=== PATIENT | female | born 1955 | race African-American/Black ===

== ENCOUNTER 2016-08-08 17:31 | Emergency (ER) | payer OTHER ==
[~2016-08-08 17:31] MED LIST: CLON0.3T PO; DIVA500T2 PO; HYDR-2762 PO; Hydrocodone/Acetaminophen PO; LISI10TA PO; NAPR500T PO; OMEP20TA63 PO; VARE1TAB5 PO
--- NOTE | 2016-08-08 17:52 | PHYS DOC ---
Past Medical History Past Medical History: Arthritis, Hypertension, Seizure, Other Additional Past Medical Histor: VERTIGO, CHRONIC BACK PAIN Past Surgical History: Cholecystectomy, Hysterectomy, Other Additional Past Surgical Histo: CYSTECTOMY, NASAL Alcohol Use: None Drug Use: None Adult General Chief Complaint Chief Complaint: SEIZURE HPI HPI Patient is a 61 year old female brought to the ED by EMS from home with the complaint of seizure. When I saw her, the patient is alert and oriented but has no memory of the seizure. Patient states she has had a seizure disorder for about 20 years. Her last seizure was 3 or 4 years ago. She takes Depakote 500 mg , two twice a day. She is usually well-controlled. She did take her Depakote this morning. She has been feeling fine until today. Shortly before her seizure , she did have one episode of vomiting. Now, she feels weak all over and has a headache. Seizure was witnessed by the patient's niece, who had just stopped by to check on the patient. The niece called 911. The patient lives alone. The patient is on disability because of seizure disorder. PCP Dr. Ahsan Calzada Review of Systems Review of Systems Constitutional: Denies fever or chills , she does feel weak all over Eyes: Denies change in visual acuity, redness, or eye pain [] HENT: Denies nasal congestion or sore throat [] Respiratory: Denies cough or shortness of breath [] Cardiovascular: Denies chest pain GI: One episode of vomiting prior to seizure, no vomiting before then or since : Denies dysuria or hematuria [] Musculoskeletal: Denies back pain or joint pain [] Integument: Denies rash or skin lesions [] Neurologic: Currently has a headache, denies focal weakness Current Medications Current Medications Current Medications Medications (Trade) Dose Ordered Sig/Onel Start Time Stop Time Status Last Admin Dose Admin Acetaminophen (Tylenol) 650 mg 1X ONCE 08/08/16 19:00 08/08/16 19:01 UNV Allergies Allergies Allergies Coded Allergies Type Severity Reaction Last Updated Verified Sulfa (Sulfonamide Antibiotics) Allergy Intermediate 02/18/15 No Physical Exam Physical Exam Constitutional: Well developed, well nourished, no acute distress, non-toxic appearance. Alert, eyes are open, she appears a bit weak and slow but she answers questions appropriately. HENT: Normocephalic, atraumatic, bilateral external ears normal, oropharynx moist, no oral exudates, nose normal. [] Eyes: PERRLA, EOMI, conjunctiva normal, no discharge. [] Neck: Normal range of motion, no tenderness, supple, no stridor. [] Cardiovascular:Heart rate regular rhythm, no murmur [] Lungs & Thorax: Bilateral breath sounds clear to auscultation [] Abdomen: Bowel sounds normal, soft, no tenderness, no masses, no pulsatile masses. [] Skin: Warm, dry, no erythema, no rash. [] Extremities: No tenderness, no cyanosis, no clubbing, ROM intact, no edema. [] Neurologic: Alert and oriented X 3, normal motor function, normal sensory function, no focal deficits noted. Current Patient Data Vital Signs Vital Signs Date Time Temp Pulse Resp B/P Pulse Ox O2 Delivery O2 Flow Rate FiO2 08/08/16 18:15 98.6 92 12 151/78 96 Room Air 98.6 Lab Values Laboratory Tests Test 08/08/16 17:47 White Blood Count 11.3x10^3/uL (4.0-11.0) H Red Blood Count 4.95x10^6/uL (3.50-5.40) Hemoglobin 13.0g/dL (12.0-15.5) Hematocrit 40.2% (36.0-47.0) Mean Corpuscular Volume 81fL (79-100) Mean Corpuscular Hemoglobin 26pg (25-35) Mean Corpuscular Hemoglobin Concent 32g/dL (31-37) Red Cell Distribution Width 15.3% (11.5-14.5) H Platelet Count 260x10^3/uL (140-400) Neutrophils (%) (Auto) 68% (31-73) Lymphocytes (%) (Auto) 26% (24-48) Monocytes (%) (Auto) 5% (0-9) Eosinophils (%) (Auto) 1% (0-3) Basophils (%) (Auto) 1% (0-3) Neutrophils # (Auto) 7.6x10^3uL (1.8-7.7) Lymphocytes # (Auto) 2.9x10^3/uL (1.0-4.8) Monocytes # (Auto) 0.5x10^3/uL (0.0-1.1) Eosinophils # (Auto) 0.1x10^3/uL (0.0-0.7) Basophils # (Auto) 0.1x10^3/uL (0.0-0.2) Sodium Level 141mmol/L (136-145) Potassium Level 3.8mmol/L (3.5-5.1) Chloride Level 103mmol/L (98-107) Carbon Dioxide Level 27mmol/L (21-32) Anion Gap 11 (6-14) Blood Urea Nitrogen 16mg/dL (7-20) Creatinine 0.9mg/dL (0.6-1.0) Estimated GFR (Cockcroft-Gault) 76.8 BUN/Creatinine Ratio 18 (6-20) Glucose Level 126mg/dL (70-99) H Calcium Level 9.4mg/dL (8.5-10.1) Total Bilirubin 0.3mg/dL (0.2-1.0) Aspartate Amino Transferase (AST) 17U/L (15-37) Alanine Aminotransferase (ALT) 13U/L (14-59) L Alkaline Phosphatase 63U/L (46-116) Total Protein 7.5g/dL (6.4-8.2) Albumin 4.0g/dL (3.4-5.0) Albumin/Globulin Ratio 1.1 (1.0-1.7) Valproic Acid Level mcg/mL (50-100) Valproic Acid Last Dose Date Valproic Acid Last Dose Time Laboratory Tests 08/08/16 17:47 Laboratory Tests 08/08/16 17:47 EKG EKG [] Radiology/Procedures Radiology/Procedures [] Course & Med Decision Making Course & Med Decision Making Pertinent Labs and Imaging studies reviewed. (See chart for details) 61-year-old female who reports a history of a seizure disorder, reports that she takes Depakote 500 twice a day. Reports that she has not missed any doses but had a witnessed seizure at home today, now neurologically intact. We will check labs including a Depakote level and observe the patient. She is agreeable to that plan. Metabolic panel unremarkable. Depakote level 59, therapeutic is 50-100. I revisited the patient. She is complaining of a headache. She cannot recall whether she usually has a headache after a seizure or not. She usually takes acetaminophen for occasional headaches at home. I ordered a dose for her. Patient is alert, daughter is at the bedside. She has had no further seizure activity in the ED. Upon further questioning, the patient still believes that she took her dose of Depakote this morning. Patient's daughter also believes that she took it, her son was there and saw the patient take it. It sounds like the patient had a breakthrough seizure in a patient with a known seizure disorder. We discussed the fact that her Depakote level is within the therapeutic range but is on the low end of that range. I'm advising the patient to use a pill minder to make 100% sure that she accurately takes her dose of Depakote twice a day every day for about 2 weeks, then follow up with her primary care physician and see if he might want to repeat a Depakote level midway between her to 12 hour doses and see if her dose stays on the low side of the therapeutic window, he might want to discuss with her increasing her dose a little bit. I will leave this up to the patient and her primary care physician to decide. Patient's daughter will take her home and I asked her to have someone stay with the patient for about 24 hours until she is feeling better. [] Dragon Disclaimer Dragon Disclaimer This electronic medical record was generated, in whole or in part, using a voice recognition dictation system. Departure Departure Impression: Primary Impression: Seizure Disposition: 01 HOME, SELF-CARE Condition: IMPROVED Referrals: KATHRYN CALZADA (PCP) Patient Instructions: Seizure, Adult, [id number] Additional Instructions: Today, your Depakote level was 59. We want it to be between 50 and 100. So it is on the low side of where we want it to be. I recommend that you use a pill minder and put your Depakote dose in the a.m. and p.m. slots every day, so it is easy to tell whether or not you take your medicine. This will help make sure that you take your dose twice every day. Take it every 12 hours, spaced out evenly as much as possible. I recommend that you take your dose of Depakote very consistently every 12 hours for about 2 weeks, and then check with Dr. Calzada and see whether he might want to repeat a Depakote level. I recommend repeating the level about prison between your morning and evening doses. If it continues to run on the low side of the therapeutic range, you might want to discuss with Dr. Calzada whether your dose should be increased a little bit. Have someone stay with you for 24 hours and keep an eye on you. Plenty of fluids and eat a snack later when you get home. STEFFANIE HALE MD Aug 08, 2016 17:52
[2016-08-08 18:07] LABS: BASO # 0.1 x10^3/uL (0.0-0.2); BASO % 1 % (0-3); EOS % 1 % (0-3); HEMATOCRIT 40.2 % (36.0-47.0); LYMPH # 2.9 x10^3/uL (1.0-4.8); LYMPH % 26 % (24-48); MEAN CORPUSCULAR HEMOGLOBIN 26 pg (25-35); MEAN CORPUSCULAR HGB CONC 32 g/dL (31-37); MEAN CORPUSCULAR VOLUME 81 fL (79-100); MONO % 5 % (0-9); NEUT % 68 % (31-73); PLATELET COUNT 260 x10^3/uL (140-400); RED BLOOD COUNT 4.95 x10^6/uL (3.50-5.40); RED CELL DISTRIBUTION WIDTH 15.3 % (11.5-14.5); WHITE BLOOD COUNT 11.3 x10^3/uL (4.0-11.0)
[2016-08-08 18:18] LABS: ANION GAP 11 (6-14); BLOOD UREA NITROGEN 16 mg/dL (7-20); BUN/CREATININE RATIO 18 (6-20); CALCIUM 9.4 mg/dL (8.5-10.1); CARBON DIOXIDE 27 mmol/L (21-32); CHLORIDE 103 mmol/L (98-107); CREATININE 0.9 mg/dL (0.6-1.0); GFR 76.8; GLUCOSE 126 mg/dL (70-99); POTASSIUM 3.8 mmol/L (3.5-5.1); SODIUM 141 mmol/L (136-145)
[2016-08-08 18:24] LABS: ALBUMIN/GLOBULIN RATIO 1.1 (1.0-1.7); ALK PHOS 63 U/L (46-116); ALT (SGPT) 13 U/L (14-59); AST (SGOT) 17 U/L (15-37); TOTAL BILIRUBIN 0.3 mg/dL (0.2-1.0); TOTAL PROTEIN 7.5 g/dL (6.4-8.2)
[2016-08-08 19:00] VITALS: BP 116/66
[2016-08-08] MEDS ORDERED: ACETAMINOPHEN 325 MG TABLET. PO ONE (19:15)
== END 2016-08-08 19:08 | disposition home or self-care (01) ==
LOC: ER 17:31
DX: R56.9 Unspecified convulsions (principal); M19.90 Unspecified osteoarthritis, unspecified site; I10 Essential (primary) hypertension; G89.29 Other chronic pain; Z88.2 Allergy status to sulfonamides
CPT/HCPCS: 36415; 80053; 80164; 85027; 99284

== ENCOUNTER 2017-07-29 11:15 | Emergency (ER) | payer OTHER ==
[2017-07-29 12:38] LABS: ADD MAN DIFF? NO
[2017-07-29 12:51] LABS: ANION GAP 10 (6-14); BLOOD UREA NITROGEN 13 mg/dL (7-20); BUN/CREATININE RATIO 14 (6-20); CARBON DIOXIDE 28 mmol/L (21-32); CHLORIDE 106 mmol/L (98-107); CREATININE 0.9 mg/dL (0.6-1.0); GFR 76.5; GLUCOSE 86 mg/dL (70-99); SODIUM 144 mmol/L (136-145)
[2017-07-29 12:57] LABS: ALBUMIN 3.6 g/dL (3.4-5.0); ALK PHOS 67 U/L (46-116); ALT (SGPT) 14 U/L (14-59); AST (SGOT) 16 U/L (15-37); TOTAL BILIRUBIN 0.2 mg/dL (0.2-1.0); TOTAL PROTEIN 7.1 g/dL (6.4-8.2)
[2017-07-29 13:02] LABS: BASO # 0.1 x10^3/uL (0.0-0.2); BASO % 1 % (0-3); EOS # 0.2 x10^3/uL (0.0-0.7); EOS % 2 % (0-3); HEMATOCRIT 39.5 % (36.0-47.0); HEMOGLOBIN 12.7 g/dL (12.0-15.5); LYMPH # 3.5 x10^3/uL (1.0-4.8); LYMPH % 52 % (24-48); MEAN CORPUSCULAR HEMOGLOBIN 27 pg (25-35); MEAN CORPUSCULAR HGB CONC 32 g/dL (31-37); MEAN CORPUSCULAR VOLUME 83 fL (79-100); MONO # 0.5 x10^3/uL (0.0-1.1); MONO % 7 % (0-9); NEUT # 2.5 x10^3uL (1.8-7.7); NEUT % 37 % (31-73); PLATELET COUNT 276 x10^3/uL (140-400); RED BLOOD COUNT 4.76 x10^6/uL (3.50-5.40); RED CELL DISTRIBUTION WIDTH 15.4 % (11.5-14.5); WHITE BLOOD COUNT 6.8 x10^3/uL (4.0-11.0)
[2017-07-29 13:30] LABS: VAL ACID 66 mcg/mL (50-100)
[2017-07-29 14:36] LABS: BILIRUBIN,URINE NEGATIVE (NEG); CLARITY,URINE CLEAR; COLOR,URINE YELLOW; GLUCOSE,URINE NEGATIVE (NEG); NITRITE,URINE NEGATIVE (NEG); PROTEIN,URINE NEGATIVE (NEG-TRACE)
[2017-07-29 14:55] LABS: BACTERIA,URINE FEW /HPF (0-FEW); RBC,URINE 0 /HPF (0-2); SQUAMOUS EPITHELIAL CELL,UR OCC /LPF
== END 2017-07-29 15:12 | disposition home or self-care (01) ==
LOC: ER 11:15
DX: R56.9 Unspecified convulsions (principal); I10 Essential (primary) hypertension; K21.9 Gastro-esophageal reflux disease without esophagitis
CPT/HCPCS: 36415; 70450; 72125; 80053; 80164; 81001; 85025; 93005; 99285-25

== ENCOUNTER 2018-04-10 14:11 | Emergency (ER) | payer OTHER ==
[~2018-04-10] VITALS: Ht 161.3 cm; Wt 63.5 kg
[~2018-04-10 14:11] MED LIST changes: +CITA40TA5 PO; +ESTR0.5T PO; +MONT10TA9 PO; +NAPR-683 PO; -NAPR500T PO; +OXYC-327 PO; +PROAIR HFA8.5 GM INH; +TRAM50TA PO; +TRAZ-85 PO
[2018-04-10 14:59] LABS: BASO # 0.1 x10^3/uL (0.0-0.2); BASO % 1 % (0-3); EOS # 0.1 x10^3/uL (0.0-0.7); EOS % 1 % (0-3); HEMATOCRIT 38.8 % (36.0-47.0); HEMOGLOBIN 12.8 g/dL (12.0-15.5); LYMPH # 3.2 x10^3/uL (1.0-4.8); LYMPH % 49 % (24-48); MEAN CORPUSCULAR HEMOGLOBIN 27 pg (25-35); MEAN CORPUSCULAR HGB CONC 33 g/dL (31-37); MEAN CORPUSCULAR VOLUME 83 fL (79-100); MONO # 0.7 x10^3/uL (0.0-1.1); MONO % 11 % (0-9); NEUT # 2.5 x10^3uL (1.8-7.7); NEUT % 38 % (31-73); PLATELET COUNT 194 x10^3/uL (140-400); RED BLOOD COUNT 4.66 x10^6/uL (3.50-5.40); RED CELL DISTRIBUTION WIDTH 15.6 % (11.5-14.5); WHITE BLOOD COUNT 6.5 x10^3/uL (4.0-11.0)
--- NOTE | 2018-04-10 15:19 | EKG ---
[facility] [address] [place] [address] Test Date: 2018-04-10 Test Time: 14:16:25 Pat Name: LANDON MOYER Department: Room: Gender: Female Billing Manager: : 1955 Requested By: ROSIO MAYS Order Number: [id number] Reading MD: Carlin Garcia MD Measurements Intervals [place] Rate: 66 P: 51 RI: 166 QRS: 27 QRSD: 84 T: 24 QT: 400 QTc: 421 Interpretive Statements SINUS RHYTHM Electronically Signed On 04-11-2018 12:46:01 CDT by Carlin Garcia MD
[2018-04-10 15:29] LABS: PROTHROMBIN TIME PATIENT 12.3 SEC (11.7-14.0)
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
[2018-04-10 16:14] LABS: BILIRUBIN,URINE NEGATIVE (NEG); CLARITY,URINE CLEAR; COLOR,URINE YELLOW; NITRITE,URINE NEGATIVE (NEG); PH,URINE 5.5; PROTEIN,URINE NEGATIVE (NEG-TRACE); UROBILINOGEN,URINE 0.2 mg/dL (0.2 mg/dL)
--- NOTE | 2018-04-10 16:14 | PHYS DOC ---
Past Medical History Past Medical History: Arthritis, GERD, Hypertension, Seizure, Other Additional Past Medical Histor: VERTIGO, CHRONIC BACK PAIN Past Surgical History: Cholecystectomy, Hysterectomy, Other Additional Past Surgical Histo: CYSTECTOMY, NASAL Alcohol Use: None Drug Use: None Adult General Chief Complaint Chief Complaint: CHEST PAIN HPI HPI Patient is a 62 year old female presented to ER today by EMS for evaluation of substernal chest pain that see been experienced for the last 4 days. Pain is sharp in nature, get worse with cough or taking a deep breath or palpation on her chest. She denies any fever, no cough. Review of Systems Review of Systems Constitutional: Denies fever or chills [] Eyes: Denies change in visual acuity, redness, or eye pain [] HENT: Denies nasal congestion or sore throat [] Respiratory: Denies cough or shortness of breath [] Cardiovascular: No additional information not addressed in HPI [] GI: Denies abdominal pain, nausea, vomiting, bloody stools or diarrhea [] : Denies dysuria or hematuria [] Musculoskeletal: Denies back pain or joint pain [] Integument: Denies rash or skin lesions [] Neurologic: Denies headache, focal weakness or sensory changes [] Endocrine: Denies polyuria or polydipsia [] All other systems were reviewed and found to be within normal limits, except as documented in this note. Current Medications Current Medications Current Medications Medications (Trade) Dose Ordered Sig/Onel Start Time Stop Time Status Last Admin Dose Admin Ketorolac Tromethamine (Toradol 30mg Vial) 30 mg 1X ONCE 04/10/18 16:45 04/10/18 16:46 DC 04/10/18 16:52 30 MG Methylprednisolone Sodium Succinate (SOLU-Medrol 125MG VIAL) 125 mg 1X ONCE 04/10/18 16:45 04/10/18 16:46 DC 04/10/18 16:52 125 MG Allergies Allergies Allergies Coded Allergies Type Severity Reaction Last Updated Verified Sulfa (Sulfonamide Antibiotics) Allergy Intermediate 08/19/17 Yes Physical Exam Physical Exam Constitutional: Well developed, well nourished, no acute distress, non-toxic appearance. [] HENT: Normocephalic, atraumatic, bilateral external ears normal, oropharynx moist, no oral exudates, nose normal. [] Eyes: PERRLA, EOMI, conjunctiva normal, no discharge. [] Neck: Normal range of motion, no tenderness, supple, no stridor. [] Cardiovascular:Heart rate regular rhythm, no murmur. Chest pain is reproducible to palpation. Lungs & Thorax: Bilateral breath sounds clear to auscultation,ANTERIOR CHEST WALL TENDER TO PALPATION. Abdomen: Bowel sounds normal, soft, no tenderness, no masses, no pulsatile masses. [] Skin: Warm, dry, no erythema, no rash. [] Back: No tenderness, no CVA tenderness. [] Extremities: No tenderness, no cyanosis, no clubbing, ROM intact, no edema. [] Neurologic: Alert and oriented X 3, normal motor function, normal sensory function, no focal deficits noted. [] Psychologic: Affect normal, judgement normal, mood normal. [] Current Patient Data Vital Signs Vital Signs Date Time Temp Pulse Resp B/P (MAP) Pulse Ox O2 Delivery O2 Flow Rate FiO2 04/10/18 14:11 98.3 63 20 155/76 (102) 99 Room Air 98.3 Lab Values Laboratory Tests Test 04/10/18 14:26 04/10/18 16:00 White Blood Count 6.5 x10^3/uL (4.0-11.0) Red Blood Count 4.66 x10^6/uL (3.50-5.40) Hemoglobin 12.8 g/dL (12.0-15.5) Hematocrit 38.8 % (36.0-47.0) Mean Corpuscular Volume 83 fL (79-100) Mean Corpuscular Hemoglobin 27 pg (25-35) Mean Corpuscular Hemoglobin Concent 33 g/dL (31-37) Red Cell Distribution Width 15.6 % (11.5-14.5) H Platelet Count 194 x10^3/uL (140-400) Neutrophils (%) (Auto) 38 % (31-73) Lymphocytes (%) (Auto) 49 % (24-48) H Monocytes (%) (Auto) 11 % (0-9) H Eosinophils (%) (Auto) 1 % (0-3) Basophils (%) (Auto) 1 % (0-3) Neutrophils # (Auto) 2.5 x10^3uL (1.8-7.7) Lymphocytes # (Auto) 3.2 x10^3/uL (1.0-4.8) Monocytes # (Auto) 0.7 x10^3/uL (0.0-1.1) Eosinophils # (Auto) 0.1 x10^3/uL (0.0-0.7) Basophils # (Auto) 0.1 x10^3/uL (0.0-0.2) Prothrombin Time 12.3 SEC (11.7-14.0) Prothrombin Time INR 1.0 (0.8-1.1) Magnesium Level 2.0 mg/dL (1.8-2.4) Troponin I Quantitative < 0.017 ng/mL (0.000-0.055) VY-Ycl-V-Type Natriuretic Peptide 210 pg/mL (0-124) H Lipase 119 U/L (73-393) Urine Collection Type Unknown Urine Color Yellow Urine Clarity Clear Urine pH 5.5 Urine Specific [place] 1.015 Urine Protein Negative mg/dL (NEG-TRACE) Urine Glucose (UA) Negative mg/dL (NEG) Urine Ketones (Stick) Negative mg/dL (NEG) Urine Blood Negative (NEG) Urine Nitrite Negative (NEG) Urine Bilirubin Negative (NEG) Urine Urobilinogen Dipstick 0.2 mg/dL (0.2 mg/dL) Urine Leukocyte Esterase Negative (NEG) Urine RBC 0 /HPF (0-2) Urine WBC 0 /HPF (0-4) Urine Squamous Epithelial Cells Few /LPF Urine Bacteria 0 /HPF (0-FEW) Laboratory Tests 04/10/18 14:26 EKG EKG ekg: rate of 66 BPM, NO STEMI, SINUS RHYTHM[] Radiology/Procedures Radiology/Procedures CHEST XRAY: NO ACUTE DISEASE [] Course & Med Decision Making Course & Med Decision Making Pertinent Labs and Imaging studies reviewed. (See chart for details) [] Dragon Disclaimer Dragon Disclaimer This electronic medical record was generated, in whole or in part, using a voice recognition dictation system. Departure Departure Impression: Primary Impression: Chest wall pain Disposition: HOME, SELF-CARE Condition: STABLE Referrals: KATHRYN BALDERAS (PCP) Patient Instructions: Chest Wall Pain ROSIO MAYS DO Apr 10, 2018 16:14
[2018-04-10 16:22] LABS: BACTERIA,URINE 0 /HPF (0-FEW); RBC,URINE 0 /HPF (0-2); SQUAMOUS EPITHELIAL CELL,UR FEW /LPF; WBC,URINE 0 /HPF (0-4)
[2018-04-10] MEDS ORDERED: methylPREDNISolone SOD SUCC PF 125 MG/2 ML VIAL. IV ONE (16:45)
[2018-04-10] MEDS ORDERED: KETOROLAC 30 MG/ML VIAL. IV ONE (16:45)
[2018-04-10 18:07] VITALS: BP 141/70
== END 2018-04-10 18:35 | disposition home or self-care (01) ==
LOC: ER 14:11
DX: R07.2 Precordial pain (principal); M19.90 Unspecified osteoarthritis, unspecified site; K21.9 Gastro-esophageal reflux disease without esophagitis; I10 Essential (primary) hypertension; G89.29 Other chronic pain; Z88.2 Allergy status to sulfonamides
CPT/HCPCS: 36415; 71045; 81001; 83690; 83735; 83880; 84484; 85025; 85610; 93005; 96374; 96375; 99285; J1885; J2930

== ENCOUNTER 2018-11-04 01:38 | Inpatient (IN) | payer OTHER ==
[~2018-11-04] VITALS: Ht 160 cm; Wt 71.8 kg
[~2018-11-04 01:38] MED LIST changes: +ALBU2.5V8 INH; -HYDR-2762 PO; +HYDR-2765 PO; -OXYC-327 PO; +OXYC1TAB19 PO; -PROAIR HFA8.5 GM INH; +TRAZ-118 PO; -TRAZ-85 PO
[2018-11-04 02:36] LABS: BASO # 0.1 x10^3/uL (0.0-0.2); BASO % 1 % (0-3); EOS # 0.2 x10^3/uL (0.0-0.7); EOS % 2 % (0-3); HEMOGLOBIN 11.6 g/dL (12.0-15.5); LYMPH # 3.9 x10^3/uL (1.0-4.8); LYMPH % 53 % (24-48); MEAN CORPUSCULAR HEMOGLOBIN 27 pg (25-35); MEAN CORPUSCULAR HGB CONC 32 g/dL (31-37); MEAN CORPUSCULAR VOLUME 82 fL (79-100); MONO # 0.6 x10^3/uL (0.0-1.1); MONO % 9 % (0-9); NEUT # 2.5 x10^3uL (1.8-7.7); NEUT % 35 % (31-73); PLATELET COUNT 230 x10^3/uL (140-400); RED BLOOD COUNT 4.37 x10^6/uL (3.50-5.40); RED CELL DISTRIBUTION WIDTH 15.6 % (11.5-14.5); WHITE BLOOD COUNT 7.3 x10^3/uL (4.0-11.0)
[2018-11-04] MEDS ORDERED: FAMOTIDINE 20 MG/2 ML VIAL IVP ONE (02:45)
[2018-11-04] MEDS ORDERED: ASPIRIN 325 MG TABLET PO ONE (02:45)
[2018-11-04] MEDS ORDERED: IV NORMAL SALINE 1000ML BAG 1,000 ML IV ONE ×2 (02:45→05:00)
[2018-11-04 02:46] LABS: PROTHROMBIN TIME PATIENT 11.4 SEC (11.7-14.0)
[2018-11-04 02:50] LABS: CALCIUM 9.6 mg/dL (8.5-10.1); CREATININE 0.8 mg/dL (0.6-1.0); GFR 87.4; POTASSIUM 4.1 mmol/L (3.5-5.1)
[2018-11-04 02:55] LABS: ALBUMIN 3.6 g/dL (3.4-5.0); ALBUMIN/GLOBULIN RATIO 1.2 (1.0-1.7); MAGNESIUM 1.9 mg/dL (1.8-2.4); TOTAL BILIRUBIN 0.1 mg/dL (0.2-1.0); TOTAL PROTEIN 6.6 g/dL (6.4-8.2)
[2018-11-04] MEDS ORDERED: CONTRAST GIVEN. MC PRN (03:30)
[2018-11-04] MEDS ORDERED: IOHEXOL 350 MG/ML 100 ML VIAL. IV ONE (04:00)
--- NOTE | 2018-11-04 04:11 | PHYS DOC ---
Past Medical History Past Medical History: Arthritis, GERD, Hypertension, Seizure, Other Additional Past Medical Histor: VERTIGO, CHRONIC BACK PAIN Past Surgical History: Cholecystectomy, Hysterectomy, Other Additional Past Surgical Histo: CYSTECTOMY, NASAL Smoking: Quit Greater Than 1 Year Alcohol Use: None Drug Use: None Adult General Chief Complaint Chief Complaint: CHEST PAIN HPI HPI 63-year-old female presents via EMS with report of midsternal chest pain which radiates to her back which started 2 days ago. Patient does report associated nausea. Denies diaphoresis. Patient reports pain is currently 8 out of 10 and is sharp in nature. Patient does report the pain is intermittent. Patient does report some associated shortness of breath which is worse with deep inspiration. Patient does report some lower extremity pain right greater than left. Denies any swelling. Denies history of DVT/PE. Cardiac risk factors of high blood pressure, high cholesterol, family [place] history, and former smoking. Denies trauma. Review of Systems Review of Systems Constitutional: Denies fever or chills [] Eyes: Denies change in visual acuity, redness, or eye pain [] HENT: Denies nasal congestion or sore throat [] Respiratory: Denies cough; reports shortness of breath Cardiovascular: Reports chest pain and pleuritic pain GI: Denies abdominal pain; reports nausea : Denies dysuria or hematuria [] Musculoskeletal: Denies back pain or joint pain [] Integument: Denies rash or skin lesions [] Neurologic: Denies headache, focal weakness or sensory changes [] Complete systems were reviewed and found to be within normal limits, except as documented in this note. Current Medications Current Medications Current Medications Medications (Trade) Dose Ordered Sig/Onel Start Time Stop Time Status Last Admin Dose Admin Aspirin (Andrez Aspirin) 325 mg 1X ONCE 11/04/18 02:45 11/04/18 02:46 DC 11/04/18 02:39 325 MG Famotidine (Pepcid Vial) 20 mg 1X ONCE 11/04/18 02:45 11/04/18 02:46 DC 11/04/18 02:40 20 MG Fentanyl Citrate (Fentanyl 2ml Vial) 50 mcg Q2HR PRN 11/04/18 04:30 11/05/18 04:29 UNV Info (CONTRAST GIVEN -- Rx MONITORING) 1 each PRN DAILY PRN 11/04/18 03:30 11/06/18 03:29 Iohexol (Omnipaque 350 Mg/ml) 90 ml 1X ONCE 11/04/18 04:00 11/04/18 04:01 DC 11/04/18 03:39 90 ML Ondansetron HCl (Zofran) 4 mg PRN Q8HRS PRN 11/04/18 04:30 11/05/18 04:29 UNV Sodium Chloride 1,000 ml @ 100 mls/hr 1X ONCE 11/04/18 04:30 11/04/18 14:29 UNV Allergies Allergies Allergies Coded Allergies Type Severity Reaction Last Updated Verified Sulfa (Sulfonamide Antibiotics) Allergy Intermediate 08/19/17 Yes Physical Exam Physical Exam Constitutional: Well developed, well nourished, no acute distress, non-toxic appearance. [] HENT: Normocephalic, atraumatic, oropharynx moist Eyes: Conjunctiva normal, no discharge. [] Neck: Normal range of motion, no tenderness, supple Cardiovascular: Heart rate regular rhythm, no murmur [] Lungs & Thorax: Bilateral breath sounds clear to auscultation [] Abdomen: Soft, no tenderness Skin: Warm, dry, no erythema, no rash. [] Extremities: No tenderness, ROM intact, no edema, no calf tenderness bilaterally Neurologic: Alert and oriented X 3, no focal deficits noted. [] Psychologic: Affect normal, judgement normal, mood normal. [] Current Patient Data Vital Signs Vital Signs Date Time Temp Pulse Resp B/P (MAP) Pulse Ox O2 Delivery O2 Flow Rate FiO2 11/04/18 01:41 98.0 66 16 168/74 (105) 99 Room Air 98.0 Lab Values Laboratory Tests Test 11/04/18 01:57 White Blood Count 7.3 x10^3/uL (4.0-11.0) Red Blood Count 4.37 x10^6/uL (3.50-5.40) Hemoglobin 11.6 g/dL (12.0-15.5) L Hematocrit 36.0 % (36.0-47.0) Mean Corpuscular Volume 82 fL (79-100) Mean Corpuscular Hemoglobin 27 pg (25-35) Mean Corpuscular Hemoglobin Concent 32 g/dL (31-37) Red Cell Distribution Width 15.6 % (11.5-14.5) H Platelet Count 230 x10^3/uL (140-400) Neutrophils (%) (Auto) 35 % (31-73) Lymphocytes (%) (Auto) 53 % (24-48) H Monocytes (%) (Auto) 9 % (0-9) Eosinophils (%) (Auto) 2 % (0-3) Basophils (%) (Auto) 1 % (0-3) Neutrophils # (Auto) 2.5 x10^3uL (1.8-7.7) Lymphocytes # (Auto) 3.9 x10^3/uL (1.0-4.8) Monocytes # (Auto) 0.6 x10^3/uL (0.0-1.1) Eosinophils # (Auto) 0.2 x10^3/uL (0.0-0.7) Basophils # (Auto) 0.1 x10^3/uL (0.0-0.2) Prothrombin Time 11.4 SEC (11.7-14.0) L Prothrombin Time INR 0.9 (0.8-1.1) Sodium Level 142 mmol/L (136-145) Potassium Level 4.1 mmol/L (3.5-5.1) Chloride Level 102 mmol/L (98-107) Carbon Dioxide Level 26 mmol/L (21-32) Anion Gap 14 (6-14) Blood Urea Nitrogen 24 mg/dL (7-20) H Creatinine 0.8 mg/dL (0.6-1.0) Estimated GFR (Cockcroft-Gault) 87.4 BUN/Creatinine Ratio 30 (6-20) H Glucose Level 102 mg/dL (70-99) H Calcium Level 9.6 mg/dL (8.5-10.1) Magnesium Level 1.9 mg/dL (1.8-2.4) Total Bilirubin 0.1 mg/dL (0.2-1.0) L Aspartate Amino Transferase (AST) 15 U/L (15-37) Alanine Aminotransferase (ALT) 14 U/L (14-59) Alkaline Phosphatase 55 U/L (46-116) Creatine Kinase 126 U/L (26-192) Creatine Kinase MB (Mass) 1.9 ng/mL (0.0-3.6) Creatine Kinase MB Relative Index 1.5 % (0-4) Troponin I Quantitative < 0.017 ng/mL (0.000-0.055) IV-Jmj-U-Type Natriuretic Peptide 23 pg/mL (0-124) Total Protein 6.6 g/dL (6.4-8.2) Albumin 3.6 g/dL (3.4-5.0) Albumin/Globulin Ratio 1.2 (1.0-1.7) Lipase 102 U/L (73-393) Laboratory Tests 11/04/18 01:57 Laboratory Tests 11/04/18 01:57 EKG EKG @0149 NSR at 60bpm, NO ST elevation Radiology/Procedures Radiology/Procedures PROCEDURE: CT ANGIOGRAPHY CHEST EXAM: CT chest with contrast - pulmonary embolus protocol CLINICAL HISTORY: chest pain, eval for PE COMPARISON: 08/17/2017 TECHNIQUE: CT of the chest following the administration of intravenous contrast during the pulmonary arterial phase. Axial, coronal and sagittal reformatted images were generated including MIP images. ---PQRS compliance statement - One or more of the following individualized dose reduction techniques were utilized for this study: 1. Automated exposure control 2. Adjustment of the mA and/or kV according to patient size 3. Use of iterative reconstruction technique--- FINDINGS: CHEST: Diagnostic quality: Adequate. Pulmonary emboli: None seen Right heart strain: None Pulmonary arteries: Normal in caliber. No axillary lymphadenopathy. No mediastinal or hilar lymphadenopathy. No pleural effusion or pneumothorax. Linear opacities in the lower lobes, middle lobe and lingula likely scarring/atelectasis. A 0.5 cm right upper lobe lung nodule (series 2 image 53) is seen. This is stable to 08/17/2017. A 4 mm lung nodule in the right upper lobe is also stable to 08/17/2017. Vague groundglass opacities in the lower lobes. Visualized Upper abdomen: Cholecystectomy clips are seen. Moderate colonic stool content is seen. Bones: Osseous structures are grossly unremarkable. IMPRESSION: 1. No evidence for acute pulmonary embolus. 2. Right lung nodules measuring up to 5 mm are essentially stable to 08/17/2017. 3. Vague groundglass opacities in the lower lobes, favor atelectasis although groundglass opacities may be seen with infectious or inflammatory process. Electronically signed by: Ramón Hernández MD (11/04/2018 4:20 AM) [facility] Course & Med Decision Making Course & Med Decision Making Pertinent Labs and Imaging studies reviewed. (See chart for details) Patient with significant cardiac risk factors presents with report of substernal chest pain with radiation to back which is intermittent and pleuritic in nature. EKG stable. Aspirin provided. Labs obtained and posted to chart. Initial troponin within normal limits. HEART score 4. CTA chest without signs of PE or other focal abnormality. Patient requiring admission for further evaluation and treatment. Discussed with Dr. Chuck Naranjo (hospitalist) who is in agreement with admission. Discussed findings and plan with patient, who acknowledges understanding and agreement. Dragon Disclaimer Dragon Disclaimer This electronic medical record was generated, in whole or in part, using a voice recognition dictation system. Departure Departure Impression: Primary Impression: Chest pain Disposition: ADMITTED INPATIENT Admitting Physician: Other (Peter Naranjo) Condition: STABLE Referrals: KATHRYN BALDERAS (PCP) Problem Qualifiers Primary Impression: Chest pain Chest pain type: unspecified Qualified Codes: R07.9 - Chest pain, unspecified JESSIE MCMAHAN DO Nov 04, 2018 04:11
--- NOTE | 2018-11-04 04:23 | RAD ---
EXAM: CT chest with contrast - pulmonary embolus protocol CLINICAL HISTORY: chest pain, eval for PE COMPARISON: 08/17/2017 TECHNIQUE: CT of the chest following the administration of intravenous contrast during the pulmonary arterial phase. Axial, coronal and sagittal reformatted images were generated including MIP images. ---PQRS compliance statement - One or more of the following individualized dose reduction techniques were utilized for this study: 1. Automated exposure control 2. Adjustment of the mA and/or kV according to patient size 3. Use of iterative reconstruction technique--- FINDINGS: CHEST: Diagnostic quality: Adequate. Pulmonary emboli: None seen Right heart strain: None Pulmonary arteries: Normal in caliber. No axillary lymphadenopathy. No mediastinal or hilar lymphadenopathy. No pleural effusion or pneumothorax. Linear opacities in the lower lobes, middle lobe and lingula likely scarring/atelectasis. A 0.5 cm right upper lobe lung nodule (series 2 image 53) is seen. This is stable to 08/17/2017. A 4 mm lung nodule in the right upper lobe is also stable to 08/17/2017. Vague groundglass opacities in the lower lobes. Visualized Upper abdomen: Cholecystectomy clips are seen. Moderate colonic stool content is seen. Bones: Osseous structures are grossly unremarkable. IMPRESSION: 1. No evidence for acute pulmonary embolus. 2. Right lung nodules measuring up to 5 mm are essentially stable to 08/17/2017. 3. Vague groundglass opacities in the lower lobes, favor atelectasis although groundglass opacities may be seen with infectious or inflammatory process. Electronically signed by: Ramón Hernández MD (11/04/2018 4:20 AM) [facility]
[2018-11-04] MEDS ORDERED: ONDANSETRON PF 4 MG/2 ML VIAL. IV PRN (04:30)
[2018-11-04] MEDS ORDERED: fentaNYL PF VIAL 100 MCG/2 ML VIAL IV PRN (04:30)
[2018-11-04 05:05] VITALS: BP 163/92
[2018-11-04] MEDS ORDERED: HYDR-2765 PO ×2 (06:07→09:14)
[2018-11-04] MEDS ORDERED: TRAM50TA PO (06:07)
--- NOTE | 2018-11-04 06:09 | NUR ---
Admit from ED with DX chest pain. Patient reports she has had mid sternal chest pain off and on for 1 month. Patient states she "has not felt good since May". A/O x 4. VSS. Reviewed POC to include out of bed with assist and lab draws such as troponin. Oriented to room and call light. Patient verbalized understanding. Patient does not know her home medication list. She reports she takes Hydrocodone for chronic back pain, Tramadol for arthritis and Depakote for seizures.
[2018-11-04 07:21] VITALS: BP 151/80
--- NOTE | 2018-11-04 08:01 | PDOC1 ---
History and Physical Date of Admission Date of Admission DATE: 11/04/18 TIME: 07:58 Identification/Chief Complaint Chief Complaint Chest pain Source Source: Chart review, Patient History of Present Illness History of Present Illness Ms Alcantara is a 63-year-old female w/ PMHx vertigo, chronic back pain, Arthritis, GERD, Hypertension, Seizures presents via EMS with report of midsternal chest pain which radiates to her back which started 2 days ago. Patient does report associated nausea. Denies diaphoresis. Patient reports pain is currently 8 out of 10 and is sharp in nature. Patient does report the pain is intermittent. Patient does report some associated shortness of breath which is worse with deep inspiration. It is reproducible with palpation. Patient does report some lower extremity pain right greater than left. Denies any swelling. Denies history of DVT/PE. Cardiac risk factors of high blood pressure, high cholesterol, family [place] history, and former smoking. Denies trauma. She also c/o severe headache and dizziness, is unable to stand on her own without maximal assistance. Also endorses nausea not remitted with zofran IV. CTPA negative for PE. Troponin negative Had MPI 08/19/2017: 1. No EKG evidence of stressed induced ischemia. 2. Nuclear imaging shows no reversible ischemia or infarct. 3. Normal left ventricular systolic function with ejection fraction of 71%. 4. Low risk Lexiscan nuclear stress test. Past Medical History Cardiovascular: HTN Pulmonary: COPD CENTRAL NERVOUS SYSTEM: Seizure GI: GERD Hepatobiliary: No pertinent hx Psych: No pertinent hx Musculoskeletal: Osteoarthritis, Other Infectious disease: No pertinent hx Renal/: No pertinent hx Endocrine: No pertinent hx Past Surgical History Past Surgical History: Cholecystectomy, Hysterectomy, Other Family History Family History: Coronary Artery Disease Social History Smoke: 1 pack per day ALCOHOL: none Drugs: None Current Problem List Problem List Problems Medical Problems: (1) Chest pain Status: Acute Current Medications Current Medications Current Medications Aspirin (Andrez Aspirin) 325 mg 1X ONCE PO Last administered on 11/04/18at 02:39 ; Start 11/04/18 at 02:45; Stop 11/04/18 at 02:46; Status DC Sodium Chloride 1,000 ml @ 1,000 mls/hr 1X ONCE IV Last administered on at 02:41; Start 11/04/18 at 02:45; Stop 11/04/18 at 03:44; Status DC Famotidine (Pepcid Vial) 20 mg 1X ONCE IVP Last administered on 11/04/18at 02: 40; Start 11/04/18 at 02:45; Stop 11/04/18 at 02:46; Status DC Iohexol (Omnipaque 350 Mg/ml) 90 ml 1X ONCE IV Last administered on 11/04/18at 03:39; Start 11/04/18 at 04:00; Stop 11/04/18 at 04:01; Status DC Info (CONTRAST GIVEN -- Rx MONITORING) 1 each PRN DAILY PRN MC SEE COMMENTS; Start 11/04/18 at 03:30; Stop 11/06/18 at 03:29 Ondansetron HCl (Zofran) 4 mg PRN Q8HRS PRN IV NAUSEA/VOMITING 1ST CHOICE; Start 11/04/18 at 04:30; Stop 11/05/18 at 04:29 Fentanyl Citrate (Fentanyl 2ml Vial) 50 mcg PRN Q2HRS PRN IV SEVERE PAIN; Start 11/04/18 at 04:30 Sodium Chloride 1,000 ml @ 100 mls/hr 1X ONCE IV Last administered on at 05:00; Start 11/04/18 at 05:00; Stop 11/04/18 at 14:59 Active Scripts Active Prilosec Otc (Omeprazole Magnesium) 20 Mg Tablet. 1 Tab PO DAILY Prinivil (Lisinopril) 10 Mg Tablet 10 Mg PO DAILY Reported Tramadol Hcl 50 Mg Tablet 50 Mg PO Q6HRS PRN Hydrocodone-Apap 7.5-325 (Hydrocodone Bit/Acetaminophen) 1 Tab Tablet 1 Tab PO PRN Q6HRS PRN Montelukast Sodium Tablet (Montelukast Sodium) 10 Mg Tablet 1 Tab PO DAILY Estradiol 0.5 Mg Tablet 1 Tab PO DAILY Citalopram Hbr (Citalopram Hydrobromide) 40 Mg Tablet 1 Tab PO DAILY Trazodone Hcl 50 Mg Tablet 1 Tab PO QHS PRN Clonidine Hcl 0.3 Mg Tablet 1 Tab PO QHS Depakote (Divalproex Sodium) 500 Mg Tablet. 1,000 Mg PO BID Allergies Allergies: Coded Allergies: Sulfa (Sulfonamide Antibiotics) (Verified Allergy, Intermediate, 08/19/17) ROS General: YES: Fatigue, Malaise; No: Chills, Night Sweats, Appetite, Other PSYCHOLOGICAL ROS: YES: Anxiety; No: Behavioral Disorder, Concentration difficultie, Decreased libido, Depression, Disorientation, Hallucinations, Hostility, Irritablity, Memory difficulties, Mood Swings, Obsessive thoughts, Physical abuse, Sexual abuse, Sleep disturbances, Suicidal ideation, Other Eyes: No Blurry vision, No Decreased vision, No Double vision, No Dry eyes, No Excessive tearing, No Eye Pain, No Itchy Eyes, No Loss of vision, No Photophobia , No Scotomata, No Uses contacts, No Uses glasses, No Other HEENT: YES: Heacaches; No: Visual Changes, Hearing change, Nasal congestion, Nasal discharge, Oral lesions, Sinus pain, Sore Throat, Epistaxis, Sneezing, Snoring, Tinnitus, Vertigo, Vocal changes, Other ALLERGY AND IMMUNOLOGY: No: Hives, Insect Bite Sensitivity, Itchy/Watery Eyes, Nasal Congestion, Post Nasal Drip, Seasonal Allergies, Other Hematological and Lymphatic: No: Bleeding Problems, Blood Clots, Blood Transfusions, Brusing, Night Sweats, Pallor, Swollen Lymph Nodes, Other ENDOCRINE: No: Breast Changes, Galactorrhea, Hair Pattern Changes, Hot Flashes , Malaise/lethargy, Mood Swings, Palpitations, Polydipsia/polyuria, Skin Changes , Temperature Intolerance, Unexpected Weight Changes, Other Breast: No New/Changing Breast Lumps, No Nipple changes, No Nipple discharge, No Other Respiratory: YES: Shortness of breath; No: Cough, Hemoptysis, Orthopnea, Pleuritic Pain, SOB with excertion, Sputum Changes, Stridor, Tachypnea, Wheezing, Other Cardiovascular: yes Chest Pain, yes Lt Headedness; No Palpitations, No Orthopnea, No Paroxysmal Noc. Dyspnea, No Edema, No Other Gastrointestinal: Yes Nausea; No Vomiting, No Abdominal Pain, No Diarrhea, No Constipation, No Melena, No Hematochezia, No Other Genitourinary: No Dysuria, No Frequency, No Incontinence, No Hematuria, No Retention, No Discharge, No Urgency, No Pain, No Flank Pain, No Other, No , No , No , No , No , No , No Musculoskeletal: Yes Gait Disturbance; No Joint Pain, No Joint Stiffness, No Joint Swelling, No Muscle Pain, No Muscular Weakness, No Pain In:, No Swelling In:, No Other Neurological: Yes Dizziness, Yes Gait Disturbance, Yes Headaches; No Behavorial Changes, No Bowel/Bladder ControlChng, No Confusion, No Impaired Coord/balance, No Memory Loss, No Numbness/Tingling, No Seizures, No Speech Problems, No Tremors, No Visual Changes, No Weakness, No Other Skin: No Dry Skin, No Eczema, No Hair Changes, No Lumps, No Mole Changes, No Mottling, No Nail Changes, No Pruritus, No Rash, No Skin Lesion Changes, No Other, No Acne Physical Exam General: Alert, Oriented X3, Cooperative, No acute distress HEENT: Atraumatic, PERRLA, EOMI, Mucous membr. moist/pink Lungs: Normal air movement, Other (Diffuse scattered wheezes) Heart: S1S2, RRR Abdomen: Normal bowel sounds, Soft, No tenderness, No hepatosplenomegaly, No masses Extremities: No clubbing, No cyanosis, No edema, Normal pulses, No tenderness/ swelling Skin: No rashes, No breakdown, No significant lesion Neuro: Normal speech, Strength at 5/5 X4 ext, Normal tone, Sensation intact, Cranial nerves 3-12 NL, Reflexes 2+ Psych/Mental Status: Mental status NL, Mood NL Vitals Vitals Vital Signs Date Time Temp Pulse Resp B/P (MAP) Pulse Ox O2 Delivery O2 Flow Rate FiO2 11/04/18 07:21 97.6 70 18 151/80 (103) 98 Room Air 97.6 Labs Labs Laboratory Tests Test 11/04/18 01:57 White Blood Count 7.3 x10^3/uL (4.0-11.0) Red Blood Count 4.37 x10^6/uL (3.50-5.40) Hemoglobin 11.6 g/dL (12.0-15.5) Hematocrit 36.0 % (36.0-47.0) Mean Corpuscular Volume 82 fL (79-100) Mean Corpuscular Hemoglobin 27 pg (25-35) Mean Corpuscular Hemoglobin Concent 32 g/dL (31-37) Red Cell Distribution Width 15.6 % (11.5-14.5) Platelet Count 230 x10^3/uL (140-400) Neutrophils (%) (Auto) 35 % (31-73) Lymphocytes (%) (Auto) 53 % (24-48) Monocytes (%) (Auto) 9 % (0-9) Eosinophils (%) (Auto) 2 % (0-3) Basophils (%) (Auto) 1 % (0-3) Neutrophils # (Auto) 2.5 x10^3uL (1.8-7.7) Lymphocytes # (Auto) 3.9 x10^3/uL (1.0-4.8) Monocytes # (Auto) 0.6 x10^3/uL (0.0-1.1) Eosinophils # (Auto) 0.2 x10^3/uL (0.0-0.7) Basophils # (Auto) 0.1 x10^3/uL (0.0-0.2) Prothrombin Time 11.4 SEC (11.7-14.0) Prothromb Time International Ratio 0.9 (0.8-1.1) Sodium Level 142 mmol/L (136-145) Potassium Level 4.1 mmol/L (3.5-5.1) Chloride Level 102 mmol/L (98-107) Carbon Dioxide Level 26 mmol/L (21-32) Anion Gap 14 (6-14) Blood Urea Nitrogen 24 mg/dL (7-20) Creatinine 0.8 mg/dL (0.6-1.0) Estimated GFR (Cockcroft-Gault) 87.4 BUN/Creatinine Ratio 30 (6-20) Glucose Level 102 mg/dL (70-99) Calcium Level 9.6 mg/dL (8.5-10.1) Magnesium Level 1.9 mg/dL (1.8-2.4) Total Bilirubin 0.1 mg/dL (0.2-1.0) Aspartate Amino Transf (AST/SGOT) 15 U/L (15-37) Alanine Aminotransferase (ALT/SGPT) 14 U/L (14-59) Alkaline Phosphatase 55 U/L (46-116) Creatine Kinase 126 U/L (26-192) Creatine Kinase MB (Mass) 1.9 ng/mL (0.0-3.6) Creatine Kinase MB Relative Index 1.5 % (0-4) Troponin I Quantitative < 0.017 ng/mL (0.000-0.055) MT-Nri-L-Type Natriuretic Peptide 23 pg/mL (0-124) Total Protein 6.6 g/dL (6.4-8.2) Albumin 3.6 g/dL (3.4-5.0) Albumin/Globulin Ratio 1.2 (1.0-1.7) Lipase 102 U/L (73-393) Laboratory Tests Test 11/04/18 01:57 White Blood Count 7.3 x10^3/uL (4.0-11.0) Red Blood Count 4.37 x10^6/uL (3.50-5.40) Hemoglobin 11.6 g/dL (12.0-15.5) Hematocrit 36.0 % (36.0-47.0) Mean Corpuscular Volume 82 fL (79-100) Mean Corpuscular Hemoglobin 27 pg (25-35) Mean Corpuscular Hemoglobin Concent 32 g/dL (31-37) Red Cell Distribution Width 15.6 % (11.5-14.5) Platelet Count 230 x10^3/uL (140-400) Neutrophils (%) (Auto) 35 % (31-73) Lymphocytes (%) (Auto) 53 % (24-48) Monocytes (%) (Auto) 9 % (0-9) Eosinophils (%) (Auto) 2 % (0-3) Basophils (%) (Auto) 1 % (0-3) Neutrophils # (Auto) 2.5 x10^3uL (1.8-7.7) Lymphocytes # (Auto) 3.9 x10^3/uL (1.0-4.8) Monocytes # (Auto) 0.6 x10^3/uL (0.0-1.1) Eosinophils # (Auto) 0.2 x10^3/uL (0.0-0.7) Basophils # (Auto) 0.1 x10^3/uL (0.0-0.2) Prothrombin Time 11.4 SEC (11.7-14.0) Prothromb Time International Ratio 0.9 (0.8-1.1) Sodium Level 142 mmol/L (136-145) Potassium Level 4.1 mmol/L (3.5-5.1) Chloride Level 102 mmol/L (98-107) Carbon Dioxide Level 26 mmol/L (21-32) Anion Gap 14 (6-14) Blood Urea Nitrogen 24 mg/dL (7-20) Creatinine 0.8 mg/dL (0.6-1.0) Estimated GFR (Cockcroft-Gault) 87.4 BUN/Creatinine Ratio 30 (6-20) Glucose Level 102 mg/dL (70-99) Calcium Level 9.6 mg/dL (8.5-10.1) Magnesium Level 1.9 mg/dL (1.8-2.4) Total Bilirubin 0.1 mg/dL (0.2-1.0) Aspartate Amino Transf (AST/SGOT) 15 U/L (15-37) Alanine Aminotransferase (ALT/SGPT) 14 U/L (14-59) Alkaline Phosphatase 55 U/L (46-116) Creatine Kinase 126 U/L (26-192) Creatine Kinase MB (Mass) 1.9 ng/mL (0.0-3.6) Creatine Kinase MB Relative Index 1.5 % (0-4) Troponin I Quantitative < 0.017 ng/mL (0.000-0.055) BP-Nex-V-Type Natriuretic Peptide 23 pg/mL (0-124) Total Protein 6.6 g/dL (6.4-8.2) Albumin 3.6 g/dL (3.4-5.0) Albumin/Globulin Ratio 1.2 (1.0-1.7) Lipase 102 U/L (73-393) Images Images CTPA - 1. No evidence for acute pulmonary embolus. 2. Right lung nodules measuring up to 5 mm are essentially stable to 2017. 3. Vague groundglass opacities in the lower lobes, favor atelectasis although groundglass opacities may be seen with infectious or inflammatory process. VTE Prophylaxis Ordered VTE Prophylaxis Devices: Yes VTE Pharmacological Prophylaxi: Yes Assessment/Plan Assessment/Plan A/P: Chest pain - reproducible. ruled out for ACS with troponin, EKG, CTPA was negative. This is MSK vs GI. Will give PPI, topical voltaren, lidocaine Intractable Headache - on NSAIDs, should reduce, she does not wish to. Will give compazine x1. Consult neurology Vertigo - dizziness of unclear etiology Chronic back pain - will cont home meds Arthritis - cont home meds GERD - will advance to PPI Hypertension - will cont meds Seizures - will cont keppra. Consult neurology FEN - Cardiac diet PPX - SCDs FULL CODE Will convert to inpatient as she cannot walk at this point, unsafe to go home. GIOVANNI SEO MD Nov 04, 2018 08:01
[2018-11-04] MEDS ORDERED: LEVO5TAB2 PO (09:14)
[2018-11-04] MEDS ORDERED: RANI300C PO (09:14)
[2018-11-04] MEDS ORDERED: LOSA100T14 PO (09:14)
[2018-11-04] MEDS ORDERED: DICL100T PO (09:14)
[2018-11-04] MEDS ORDERED: PROCHLORPERAZINE 10 MG/2 ML VIAL. IV PRN (10:45)
[2018-11-04] MEDS ORDERED: PANTOPRAZOLE IV PUSH 40 MG VIAL. IVP ONE (10:45)
[2018-11-04] MEDS ORDERED: MECLIZINE HCL 12.5 MG TABLET. PO PRN (11:15)
--- NOTE | 2018-11-04 11:29 | PDOC ---
Provider Note Provider Note Full note dictated. Non-cardiac pain. No further testing. Thanks BEBETO INGRAM MD Nov 04, 2018 11:29
[2018-11-04 11:43] VITALS: BP 140/75
[2018-11-04] MEDS: DICLOFENAC SODIUM 25 MG TABLET.DR PO SCH ×2 (12:09→20:11)
[2018-11-04] MEDS: LOSARTAN POTASSIUM 50 MG TABLET. PO SCH (12:10)
[2018-11-04] MEDS: DIVALPROEX DELAYED RELEASE 500 MG TABLET.DR. PO SCH ×2 (12:10→20:10)
[2018-11-04] MEDS: FAMOTIDINE 20 MG TABLET. PO SCH (12:10)
[2018-11-04] MEDS: MONTELUKAST SODIUM 10 MG TABLET. PO SCH (12:11)
[2018-11-04] MEDS: CETIRIZINE HCL 10 MG TABLET. PO SCH (12:11)
[2018-11-04] MEDS: CITALOPRAM 20 MG TABLET. PO SCH (12:11)
[2018-11-04] MEDS: HYDROcodone/APAP 7.5/325MG 1 TAB TABLET PO PRN (12:16)
--- NOTE | 2018-11-04 14:42 | EKG ---
[facility] [address] [place] [address] Test Date: 2018-11-04 Test Time: 01:49:25 Pat Name: LANDON MOYER Department: Room: 201 1 Gender: F [employer]: : 1955 Requested By: JESSIE MCMAHAN Order Number: [id number] Reading MD: Maco Choudhury Measurements Intervals Adel Rate: 60 P: 48 NJ: 178 QRS: 28 QRSD: 80 T: 20 QT: 392 QTc: 396 Interpretive Statements SINUS RHYTHM NORMAL ECG Electronically Signed On 11-13-2018 12:37:57 CDT by Maco Choudhury
[2018-11-04 15:25] VITALS: BP 161/84
[2018-11-04 19:05] VITALS: BP 117/58
[2018-11-04] MEDS: cloNIDine HCL 0.3 MG TABLET PO SCH (20:11)
[2018-11-04] MEDS: traMADol 50 MG TABLET PO PRN (20:18)
[2018-11-04 23:00] VITALS: BP 133/71
[2018-11-05 03:10] VITALS: BP 125/68
[2018-11-05] MEDS: HYDROcodone/APAP 7.5/325MG 1 TAB TABLET PO PRN ×2 (05:01→16:42)
[2018-11-05 07:15] VITALS: BP 134/64
[2018-11-05] MEDS: CETIRIZINE HCL 10 MG TABLET. PO SCH (08:26)
[2018-11-05] MEDS: CITALOPRAM 20 MG TABLET. PO SCH (08:26)
[2018-11-05] MEDS: MONTELUKAST SODIUM 10 MG TABLET. PO SCH (08:26)
[2018-11-05] MEDS: DICLOFENAC SODIUM 25 MG TABLET.DR PO SCH ×2 (08:26→20:41)
[2018-11-05] MEDS: DIVALPROEX DELAYED RELEASE 500 MG TABLET.DR. PO SCH ×2 (08:26→20:40)
[2018-11-05] MEDS: FAMOTIDINE 20 MG TABLET. PO SCH (08:26)
[2018-11-05] MEDS: LOSARTAN POTASSIUM 50 MG TABLET. PO SCH (08:27)
--- NOTE | 2018-11-05 13:49 | PDOC ---
PROGRESS NOTES Chief Complaint Chief Complaint Chest pain - reproducible. ruled out for ACS Intractable Headache - on NSAIDs, s Vertigo - dizziness of unclear etiology weakness and debility, poorly ambulatory Chronic back pain - will cont home meds Arthritis - cont home meds GERD - will advance to PPI Hypertension - will cont meds Seizures - will cont keppra. Consult neurology History of Present Illness History of Present Illness cont PT and OT PT recs [facility] neuro consult to follow Vitals Vitals Vital Signs Date Time Temp Pulse Resp B/P (MAP) Pulse Ox O2 Delivery O2 Flow Rate FiO2 11/05/18 08:27 134/64 11/05/18 07:30 Room Air 11/05/18 07:15 97.5 63 17 96 97.5 Physical Exam General: Alert, Oriented X3, Cooperative, No acute distress, Other (poor recall ) Heart: Regular rate, No murmurs Lungs: Clear, Other Abdomen: Normal bowel sounds, Soft, No tenderness, No hepatosplenomegaly, No masses Extremities: No clubbing, No cyanosis, No edema, Normal pulses, No tenderness/ swelling Skin: No rashes, No breakdown, No significant lesion Assessment and Plan Assessmemt and Plan Problems Medical Problems: (1) Chest pain Status: Acute Comment Review of Relevant I have reviewed the following items andrea (where applicable) has been applied. Labs Laboratory Tests Test 11/04/18 01:57 White Blood Count 7.3 x10^3/uL (4.0-11.0) Red Blood Count 4.37 x10^6/uL (3.50-5.40) Hemoglobin 11.6 g/dL (12.0-15.5) Hematocrit 36.0 % (36.0-47.0) Mean Corpuscular Volume 82 fL (79-100) Mean Corpuscular Hemoglobin 27 pg (25-35) Mean Corpuscular Hemoglobin Concent 32 g/dL (31-37) Red Cell Distribution Width 15.6 % (11.5-14.5) Platelet Count 230 x10^3/uL (140-400) Neutrophils (%) (Auto) 35 % (31-73) Lymphocytes (%) (Auto) 53 % (24-48) Monocytes (%) (Auto) 9 % (0-9) Eosinophils (%) (Auto) 2 % (0-3) Basophils (%) (Auto) 1 % (0-3) Neutrophils # (Auto) 2.5 x10^3uL (1.8-7.7) Lymphocytes # (Auto) 3.9 x10^3/uL (1.0-4.8) Monocytes # (Auto) 0.6 x10^3/uL (0.0-1.1) Eosinophils # (Auto) 0.2 x10^3/uL (0.0-0.7) Basophils # (Auto) 0.1 x10^3/uL (0.0-0.2) Prothrombin Time 11.4 SEC (11.7-14.0) Prothromb Time International Ratio 0.9 (0.8-1.1) Sodium Level 142 mmol/L (136-145) Potassium Level 4.1 mmol/L (3.5-5.1) Chloride Level 102 mmol/L (98-107) Carbon Dioxide Level 26 mmol/L (21-32) Anion Gap 14 (6-14) Blood Urea Nitrogen 24 mg/dL (7-20) Creatinine 0.8 mg/dL (0.6-1.0) Estimated GFR (Cockcroft-Gault) 87.4 BUN/Creatinine Ratio 30 (6-20) Glucose Level 102 mg/dL (70-99) Calcium Level 9.6 mg/dL (8.5-10.1) Magnesium Level 1.9 mg/dL (1.8-2.4) Total Bilirubin 0.1 mg/dL (0.2-1.0) Aspartate Amino Transf (AST/SGOT) 15 U/L (15-37) Alanine Aminotransferase (ALT/SGPT) 14 U/L (14-59) Alkaline Phosphatase 55 U/L (46-116) Creatine Kinase 126 U/L (26-192) Creatine Kinase MB (Mass) 1.9 ng/mL (0.0-3.6) Creatine Kinase MB Relative Index 1.5 % (0-4) Troponin I Quantitative < 0.017 ng/mL (0.000-0.055) WV-Rpk-Q-Type Natriuretic Peptide 23 pg/mL (0-124) Total Protein 6.6 g/dL (6.4-8.2) Albumin 3.6 g/dL (3.4-5.0) Albumin/Globulin Ratio 1.2 (1.0-1.7) Lipase 102 U/L (73-393) Medications Current Medications Aspirin (Andrez Aspirin) 325 mg 1X ONCE PO Last administered on 11/04/18at 02:39 ; Start 11/04/18 at 02:45; Stop 11/04/18 at 02:46; Status DC Sodium Chloride 1,000 ml @ 1,000 mls/hr 1X ONCE IV Last administered on at 02:41; Start 11/04/18 at 02:45; Stop 11/04/18 at 03:44; Status DC Famotidine (Pepcid Vial) 20 mg 1X ONCE IVP Last administered on 11/04/18at 02: 40; Start 11/04/18 at 02:45; Stop 11/04/18 at 02:46; Status DC Iohexol (Omnipaque 350 Mg/ml) 90 ml 1X ONCE IV Last administered on 11/04/18at 03:39; Start 11/04/18 at 04:00; Stop 11/04/18 at 04:01; Status DC Info (CONTRAST GIVEN -- Rx MONITORING) 1 each PRN DAILY PRN MC SEE COMMENTS; Start 11/04/18 at 03:30; Stop 11/06/18 at 03:29 Ondansetron HCl (Zofran) 4 mg PRN Q8HRS PRN IV NAUSEA/VOMITING 1ST CHOICE; Start 11/04/18 at 04:30; Stop 11/05/18 at 04:29; Status DC Fentanyl Citrate (Fentanyl 2ml Vial) 50 mcg PRN Q2HRS PRN IV SEVERE PAIN; Start 11/04/18 at 04:30 Sodium Chloride 1,000 ml @ 100 mls/hr 1X ONCE IV Last administered on at 05:00; Start 11/04/18 at 05:00; Stop 11/04/18 at 14:59; Status DC Prochlorperazine Edisylate (Compazine) 10 mg PRN Q6HRS PRN IV HEADACHE/N/V Last administered on 11/04/18at 12:09; Start 11/04/18 at 10:45 Clonidine HCl (Catapres) 0.3 mg QHS PO Last administered on 11/04/18at 20:11; Start 11/04/18 at 21:00 Acetaminophen/ Hydrocodone Bitart (Lortab 7.5/325) 2 tab PRN BID PRN PO PAIN MODERATE TO SEVERE Last administered on 11/05/18 05:01; Start 11/04/18 at 10:45 Tramadol HCl (Ultram) 50 mg PRN Q6HRS PRN PO PAIN MILD Last administered on 20:18; Start 11/04/18 at 10:45 Citalopram Hydrobromide (CeleXA) 40 mg DAILY PO Last administered on 11/05/18 08:26; Start 11/04/18 at 12:00 Diclofenac Sodium (Voltaren) 75 mg BID PO Last administered on 11/05/18 08:26 ; Start 11/04/18 at 12:00 Divalproex Sodium (Depakote) 1,000 mg BID PO Last administered on 11/05/18 08: 26; Start 11/04/18 at 12:00 Cetirizine HCl (ZyrTEC) 10 mg DAILY PO Last administered on 11/05/18 08:26; Start 11/04/18 at 12:00 Losartan Potassium (Cozaar) 100 mg DAILY PO Last administered on 11/05/18 08: 27; Start 11/04/18 at 12:00 Montelukast Sodium (Singulair) 10 mg DAILY PO Last administered on 11/05/18 08 :26; Start 11/04/18 at 12:00 Famotidine (Pepcid) 20 mg DAILY PO Last administered on 11/05/18 08:26; Start 11/04/18 at 12:00 Pantoprazole Sodium (PROTONIX VIAL for IV PUSH) 40 mg 1X ONCE IVP Last administered on 11/04/18 12:09; Start 11/04/18 at 10:45; Stop 11/04/18 at 10:54 ; Status DC Meclizine HCl (Antivert) 12.5 mg PRN Q6HRS PRN PO DIZZINESS; Start 11/04/18 at 11:15 Active Scripts Active Reported Ranitidine Hcl 300 Mg Capsule 1 Cap PO DAILY Losartan Potassium 100 Mg Tablet 100 Mg PO DAILY Levocetirizine Dihydrochloride 5 Mg Tablet 1 Tab PO DAILY Hydrocodone-Apap 7.5-325 (Hydrocodone Bit/Acetaminophen) 1 Tab Tablet 2 Tab PO BID PRN Voltaren-Xr (Diclofenac Sodium) 100 Mg Tab.er.24h 75 Mg PO BID Tramadol Hcl 50 Mg Tablet 50 Mg PO Q6HRS PRN Montelukast Sodium Tablet (Montelukast Sodium) 10 Mg Tablet 1 Tab PO DAILY Estradiol 0.5 Mg Tablet 1 Tab PO DAILY Citalopram Hbr (Citalopram Hydrobromide) 40 Mg Tablet 1 Tab PO DAILY Clonidine Hcl 0.3 Mg Tablet 1 Tab PO QHS Depakote (Divalproex Sodium) 500 Mg Tablet.dr 1,000 Mg PO BID Vitals/I & O Vital Sign - Last 24 Hours 11/04/18 11/04/18 11/04/18 11/04/18 15:25 19:05 20:01 20:11 Temp 98.3 97.2 98.3 97.2 Pulse 68 62 62 Resp 18 17 B/P (MAP) 161/84 (109) 117/58 (77) 117/58 Pulse Ox 95 O2 Delivery Room Air Room Air 11/04/18 11/04/18 11/04/18 11/05/18 20:18 21:18 23:00 03:10 Temp 97.7 97.9 97.7 97.9 Pulse 61 59 Resp 20 20 16 16 B/P (MAP) 133/71 (91) 125/68 (87) Pulse Ox 95 95 91 92 O2 Delivery Room Air Room Air Room Air Room Air 11/05/18 11/05/18 11/05/18 11/05/18 05:01 06:01 07:15 07:30 Temp 97.5 97.5 Pulse 63 Resp 18 18 17 B/P (MAP) 134/64 (87) Pulse Ox 92 92 96 O2 Delivery Room Air Room Air Room Air Room Air 11/05/18 08:27 B/P (MAP) 134/64 Intake and Output 11/04/18 11/04/18 11/05/18 15:00 23:00 07:00 Intake Total 0 ml 300 ml Output Total 450 ml 0 ml Balance -450 ml 300 ml 0 ml KEITH CARRANZA MD Nov 05, 2018 13:49
[2018-11-05 14:51] VITALS: BP 140/63
--- NOTE | 2018-11-05 19:33 | CARD ---
MR#: [id number] Date of Study: 11/05/2018 Ordering Physician: GIOVANNI SEO, Referring Physician: LAVERN SUTTON, Tech: Kaci Vincent APPROVED REPORT EXAM: Two-dimensional and M-mode echocardiogram with Doppler and color Doppler. Other Information Quality : AverageHR: 54bpm Rhythm : NSR INDICATION Dyspnea Chest Pain RISK FACTORS Hypertension Hyperlipidemia 2D DIMENSIONS RVDd3.2 (2.9-3.5cm)Left Atrium(2D)2.9 (1.6-4.0cm) IVSd1.1 (0.7-1.1cm)Aortic Root(2D)2.6 (2.0-3.7cm) LVDd4.4 (3.9-5.9cm)PWd1.0 (0.7-1.1cm) LVDs2.8 (2.5-4.0cm)FS (%) 37.3 % SV60.0 mlLVEF(%)67.5 (>50%) Aortic Valve AoV Peak Deo.126.6cm/sAoV VTI30.3cm AO Peak GR.6.4mmHgLVOT VTI 22.05cm AO Mean GR.3mmHg Mitral Valve MV E Xqgkgmkd74.9cm/sMV DECEL [id number] MV A Sctqnofs84.5cm/sE/A Ratio1.5 TDI Lateral E' P. V11.20cm/sMedial E' P. V7.27cm/s E/Lateral E'6.8E/Medial E'10.4 Tricuspid Valve TR P. Mtjpcinb945xl/sRAP [id number] TR Peak Gr.13hpFbIQGZ07ziZu Pulmonary Vein S1 Iiimsupl15.0cm/sS2 Uwjhsjmi45.01cm/s D2 Joynsbep77.0cm/sPVa bcuplfeq538rtsi LEFT VENTRICLE The left ventricle is normal size. There is borderline concentric left ventricular hypertrophy. The l eft ventricular systolic function is normal and the ejection fraction is within normal range. The Eje ction Fraction is >55%. There is normal LV segmental wall motion. The left ventricular diastolic func tion and filling is normal for age. RIGHT VENTRICLE The right ventricle is normal size. There is normal right ventricular wall thickness. The right ventr icular systolic function is normal. ATRIA The left atrium size is normal. The right atrium size is normal. The interatrial septum is intact wit h no evidence for an atrial septal defect or patent foramen ovale as noted on 2-D or Doppler imaging. AORTIC VALVE The aortic valve is normal in structure and function. Doppler and Color Flow revealed no significant aortic regurgitation. There is no significant aortic valvular stenosis. MITRAL VALVE The mitral valve is thickened but opens well. There is no evidence of mitral valve prolapse. There is no mitral valve stenosis. Doppler and Color-flow revealed trace to mild mitral regurgitation. TRICUSPID VALVE The tricuspid valve is normal in structure and function. Doppler and Color Flow revealed trace tricus pid regurgitation with an estimated PAP of 37 mmHg. There is no tricuspid valve stenosis. PULMONIC VALVE Doppler and Color Flow revealed no pulmonic valvular regurgitation. There is no pulmonic valvular leif nosis. GREAT VESSELS The aortic root is normal in size. The IVC is dilated and collapses <50% with inspiration. PERICARDIAL EFFUSION There is no evidence of significant pericardial effusion. Critical Notification Critical Value: No <Conclusion> The left ventricular systolic function is normal and the ejection fraction is within normal range. Th e Ejection Fraction is >55%. There is normal LV segmental wall motion. The IVC is dilated and collapses <50% with inspiration suggestive of volume overload. Signed by : Carlin Garcia, Electronically Approved : 11/05/2018 19:33:24
[2018-11-05 19:40] VITALS: BP 143/72
[2018-11-05] MEDS: cloNIDine HCL 0.3 MG TABLET PO SCH (20:41)
[2018-11-05 23:35] VITALS: BP 146/70
[2018-11-06 03:40] VITALS: BP 127/63
[2018-11-06 07:33] LABS: VAL ACID 69 mcg/mL (50-100)
[2018-11-06 07:48] VITALS: BP 145/70
--- NOTE | 2018-11-06 08:09 | PDOC ---
PROGRESS NOTES Chief Complaint Chief Complaint Chest pain - reproducible. ruled out for ACS Intractable Headache - on NSAIDs, s Vertigo - dizziness of unclear etiology weakness and debility, poorly ambulatory Chronic back pain - will cont home meds Arthritis - cont home meds GERD - will advance to PPI Hypertension - will cont meds Seizures - will cont keppra. Consult neurology History of Present Illness History of Present Illness Ms Alcantara is a 63-year-old female w/ PMHx vertigo, chronic back pain, Arthritis, GERD, Hypertension, Seizures presents via EMS with report of midsternal chest pain which radiates to her back which started 2 days ago. Patient does report associated nausea. Denies diaphoresis. Patient reports pain is currently 8 out of 10 and is sharp in nature. Patient does report the pain is intermittent. Patient does report some associated shortness of breath which is worse with deep inspiration. It is reproducible with palpation. Patient does report some lower extremity pain right greater than left. Denies any swelling. Denies history of DVT/PE. Cardiac risk factors of high blood pressure, high cholesterol, family CO history, and former smoking. Denies trauma. She also c/o severe headache and dizziness, is unable to stand on her own without maximal assistance. Also endorses nausea not remitted with zofran IV. CTPA negative for PE. Troponin negative Had MPI 08/19/2017: 1. No EKG evidence of stressed induced ischemia. 2. Nuclear imaging shows no reversible ischemia or infarct. 3. Normal left ventricular systolic function with ejection fraction of 71%. 4. Low risk Lexiscan nuclear stress test. Feels better today. Headache improved. Chest pain resolving. Wants to leave cont PT and OT PT recs SNU - She will not go, wants home health neuro consult to follow Vitals Vitals Vital Signs Date Time Temp Pulse Resp B/P (MAP) Pulse Ox O2 Delivery O2 Flow Rate FiO2 11/06/18 07:48 98.3 54 18 145/70 (95) 95 Room Air 98.3 Physical Exam General: Alert, Oriented X3, Cooperative, No acute distress, Other (poor recall ) Heart: Regular rate, No murmurs Lungs: Clear, Other Abdomen: Normal bowel sounds, Soft, No tenderness, No hepatosplenomegaly, No masses Extremities: No clubbing, No cyanosis, No edema, Normal pulses, No tenderness/ swelling Skin: No rashes, No breakdown, No significant lesion Labs LABS Laboratory Tests Test 11/06/18 04:00 Erythrocyte Sedimentation Rate 6 (0-25) C-Reactive Protein, Quantitative 1.6 mg/L (0-3.3) Valproic Acid (Depakene) Level 69 mcg/mL (50-100) Valproic Acid Last Dose Date 11/05/18 Valproic Acid Last Dose Time 2100 Assessment and Plan Assessmemt and Plan Problems Medical Problems: (1) Chest pain Status: Acute Comment Review of Relevant I have reviewed the following items andrea (where applicable) has been applied. Labs Laboratory Tests Test 11/06/18 04:00 Erythrocyte Sedimentation Rate 6 (0-25) C-Reactive Protein, Quantitative 1.6 mg/L (0-3.3) Valproic Acid (Depakene) Level 69 mcg/mL (50-100) Valproic Acid Last Dose Date 11/05/18 Valproic Acid Last Dose Time 2100 Laboratory Tests Test 11/06/18 04:00 Erythrocyte Sedimentation Rate 6 (0-25) C-Reactive Protein, Quantitative 1.6 mg/L (0-3.3) Valproic Acid (Depakene) Level 69 mcg/mL (50-100) Valproic Acid Last Dose Date 11/05/18 Valproic Acid Last Dose Time 2100 Medications Current Medications Aspirin (Andrez Aspirin) 325 mg 1X ONCE PO Last administered on 11/04/18at 02:39 ; Start 11/04/18 at 02:45; Stop 11/04/18 at 02:46; Status DC Sodium Chloride 1,000 ml @ 1,000 mls/hr 1X ONCE IV Last administered on at 02:41; Start 11/04/18 at 02:45; Stop 11/04/18 at 03:44; Status DC Famotidine (Pepcid Vial) 20 mg 1X ONCE IVP Last administered on 11/04/18at 02: 40; Start 11/04/18 at 02:45; Stop 11/04/18 at 02:46; Status DC Iohexol (Omnipaque 350 Mg/ml) 90 ml 1X ONCE IV Last administered on 11/04/18at 03:39; Start 11/04/18 at 04:00; Stop 11/04/18 at 04:01; Status DC Info (CONTRAST GIVEN -- Rx MONITORING) 1 each PRN DAILY PRN MC SEE COMMENTS; Start 11/04/18 at 03:30; Stop 11/06/18 at 03:29; Status DC Ondansetron HCl (Zofran) 4 mg PRN Q8HRS PRN IV NAUSEA/VOMITING 1ST CHOICE; Start 11/04/18 at 04:30; Stop 11/05/18 at 04:29; Status DC Fentanyl Citrate (Fentanyl 2ml Vial) 50 mcg PRN Q2HRS PRN IV SEVERE PAIN; Start 11/04/18 at 04:30 Sodium Chloride 1,000 ml @ 100 mls/hr 1X ONCE IV Last administered on 05:00; Start 11/04/18 at 05:00; Stop 11/04/18 at 14:59; Status DC Prochlorperazine Edisylate (Compazine) 10 mg PRN Q6HRS PRN IV HEADACHE/N/V Last administered on 11/04/18 12:09; Start 11/04/18 at 10:45 Clonidine HCl (Catapres) 0.3 mg QHS PO Last administered on 11/05/18 20:41; Start 11/04/18 at 21:00 Acetaminophen/ Hydrocodone Bitart (Lortab 7.5/325) 2 tab PRN BID PRN PO PAIN MODERATE TO SEVERE Last administered on 11/05/18 16:42; Start 11/04/18 at 10:45 Tramadol HCl (Ultram) 50 mg PRN Q6HRS PRN PO PAIN MILD Last administered on 20:18; Start 11/04/18 at 10:45 Citalopram Hydrobromide (CeleXA) 40 mg DAILY PO Last administered on 11/05/18 08:26; Start 11/04/18 at 12:00 Diclofenac Sodium (Voltaren) 75 mg BID PO Last administered on 11/05/18 20:41 ; Start 11/04/18 at 12:00 Divalproex Sodium (Depakote) 1,000 mg BID PO Last administered on 11/05/18 20: 40; Start 11/04/18 at 12:00 Cetirizine HCl (ZyrTEC) 10 mg DAILY PO Last administered on 11/05/18 08:26; Start 11/04/18 at 12:00 Losartan Potassium (Cozaar) 100 mg DAILY PO Last administered on 11/05/18 08: 27; Start 11/04/18 at 12:00 Montelukast Sodium (Singulair) 10 mg DAILY PO Last administered on 11/05/18 08 :26; Start 11/04/18 at 12:00 Famotidine (Pepcid) 20 mg DAILY PO Last administered on 11/05/18 08:26; Start 11/04/18 at 12:00 Pantoprazole Sodium (PROTONIX VIAL for IV PUSH) 40 mg 1X ONCE IVP Last administered on 11/04/18at 12:09; Start 11/04/18 at 10:45; Stop 11/04/18 at 10:54 ; Status DC Meclizine HCl (Antivert) 12.5 mg PRN Q6HRS PRN PO DIZZINESS; Start 11/04/18 at 11:15 Active Scripts Active Reported Ranitidine Hcl 300 Mg Capsule 1 Cap PO DAILY Losartan Potassium 100 Mg Tablet 100 Mg PO DAILY Levocetirizine Dihydrochloride 5 Mg Tablet 1 Tab PO DAILY Hydrocodone-Apap 7.5-325 (Hydrocodone Bit/Acetaminophen) 1 Tab Tablet 2 Tab PO BID PRN Voltaren-Xr (Diclofenac Sodium) 100 Mg Tab.er.24h 75 Mg PO BID Tramadol Hcl 50 Mg Tablet 50 Mg PO Q6HRS PRN Montelukast Sodium Tablet (Montelukast Sodium) 10 Mg Tablet 1 Tab PO DAILY Estradiol 0.5 Mg Tablet 1 Tab PO DAILY Citalopram Hbr (Citalopram Hydrobromide) 40 Mg Tablet 1 Tab PO DAILY Clonidine Hcl 0.3 Mg Tablet 1 Tab PO QHS Depakote (Divalproex Sodium) 500 Mg Tablet.dr 1,000 Mg PO BID Vitals/I & O Vital Sign - Last 24 Hours 11/05/18 11/05/18 11/05/18 11/05/18 08:27 14:51 16:42 17:42 Temp 97.2 97.2 Pulse 53 Resp 16 18 B/P (MAP) 134/64 140/63 (88) Pulse Ox 97 97 97 O2 Delivery Room Air Room Air Room Air 11/05/18 11/05/18 11/05/18 11/06/18 19:40 20:41 23:35 03:40 Temp 97.6 97.8 97.9 97.6 97.8 97.9 Pulse 57 59 57 56 Resp 18 18 18 B/P (MAP) 143/72 (95) 143/72 146/70 (95) 127/63 (84) Pulse Ox 97 96 94 O2 Delivery Room Air Room Air Room Air 11/06/18 07:48 Temp 98.3 98.3 Pulse 54 Resp 18 B/P (MAP) 145/70 (95) Pulse Ox 95 O2 Delivery Room Air Intake and Output 11/05/18 11/05/18 11/06/18 15:00 23:00 07:00 Intake Total 240 ml 700 ml 560 ml Output Total 175 ml Balance 240 ml 700 ml 385 ml GIOVANNI SEO MD Nov 06, 2018 08:09
[2018-11-06] MEDS: DIVALPROEX DELAYED RELEASE 500 MG TABLET.DR. PO SCH (09:58)
[2018-11-06] MEDS: CITALOPRAM 20 MG TABLET. PO SCH (09:58)
[2018-11-06] MEDS: MONTELUKAST SODIUM 10 MG TABLET. PO SCH (09:58)
[2018-11-06] MEDS: LOSARTAN POTASSIUM 50 MG TABLET. PO SCH (09:59)
[2018-11-06] MEDS: DICLOFENAC SODIUM 25 MG TABLET.DR PO SCH (09:59)
[2018-11-06] MEDS: FAMOTIDINE 20 MG TABLET. PO SCH (09:59)
[2018-11-06] MEDS: CETIRIZINE HCL 10 MG TABLET. PO SCH (09:59)
--- NOTE | 2018-11-06 10:05 | RAD ---
CT MAXILLOFACIAL WO CONTRAST Indication: Chronic headaches Technique: Noncontrast CT imaging was performed of the maxillofacial region, multiplanar reconstruction images submitted. One or more of the following individualized dose reduction techniques were utilized for this examination: 1. Automated exposure control 2. Adjustment of the mA and/or kV according to patient size 3. Use of iterative reconstruction technique. Comparison: None Findings: There are no air-fluid levels of the paranasal sinuses. Ostiomeatal units are patent bilaterally. Paranasal sinuses are aerated without significant mucosal thickening. Globes are symmetric in appearance, slightly disconjugate gaze. There is a focus of density eroding through the anterior cortex of the right anterior parasagittal mandible apparently protruding beyond the plane of the bone into the adjacent soft tissues, focus of density in this region about 1.1 cm transverse by about 1 cm AP by 1.4 cm cc. Internal density measurements are not of simple cyst at 64 Hounsfield units. IMPRESSION: 1. Paranasal sinuses are aerated without air-fluid levels. 2. There is focus of smooth bony erosion of the anterior right parasagittal mandible, lesion protruding anteriorly into the adjacent soft tissues. This is not have characteristics of a simple cyst, could be solid or complex cystic lesion with a broad differential. Fairly smooth margins of the eroded bone favors a more indolent or chronic process. Electronically signed by: Kojo Fortune MD (11/06/2018 10:02 AM) [id number]
[2018-11-06] MEDS: traMADol 50 MG TABLET PO PRN (10:07)
[2018-11-06] MEDS: HYDROcodone/APAP 7.5/325MG 1 TAB TABLET PO PRN (10:10)
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
[2018-11-06 10:43] VITALS: BP 171/82
--- NOTE | 2018-11-06 11:30 | PDOC ---
PROGRESS NOTES Assessment Problems Medical Problems: (1) Chest pain Status: Acute Chronic headaches Epilepsy, last seizure related to Chantix Right mandible lesion Plan She can follow up with me as an outpatient regarding her history of epilepsy and headaches, no changes to be made now Inpatient or outpatient oral surgery consult Okay for discharge Subjective Denies headache or seizure Objective Vital Signs Date Time Temp Pulse Resp B/P (MAP) Pulse Ox O2 Delivery O2 Flow Rate FiO2 11/06/18 10:43 98.2 55 18 171/82 (111) 96 Room Air 98.2 Intake and Output 11/06/18 07:00 Intake Total 1500 ml Output Total 175 ml Balance 1325 ml Intake Oral 1500 ml Output Urine Total 175 ml PHYSICAL EXAM Alert. Oriented to time, place and person. PERRL. EOMI. CN: no focal findings. Muscle tone: normal. Muscle strength: 4/5 DTR: 1+ Plantar reflex: flexor Gait: not examined in bed. Sensory exam: no abnormal findings. No cerebellar signs elicited. Review of Relevant I have reviewed the following items andrea (where applicable) has been applied. Labs Laboratory Tests Test 11/06/18 04:00 Erythrocyte Sedimentation Rate 6 (0-25) C-Reactive Protein, Quantitative 1.6 mg/L (0-3.3) Thyroid Stimulating Hormone (TSH) 1.961 uIU/mL (0.358-3.74) Valproic Acid (Depakene) Level 69 mcg/mL (50-100) Valproic Acid Last Dose Date 11/05/18 Valproic Acid Last Dose Time 2099 Laboratory Tests Test 11/06/18 04:00 Erythrocyte Sedimentation Rate 6 (0-25) C-Reactive Protein, Quantitative 1.6 mg/L (0-3.3) Thyroid Stimulating Hormone (TSH) 1.961 uIU/mL (0.358-3.74) Valproic Acid (Depakene) Level 69 mcg/mL (50-100) Valproic Acid Last Dose Date 11/05/18 Valproic Acid Last Dose Time 2100 Medications Current Medications Aspirin (Andrez Aspirin) 325 mg 1X ONCE PO Last administered on 11/04/18at 02:39 ; Start 11/04/18 at 02:45; Stop 11/04/18 at 02:46; Status DC Sodium Chloride 1,000 ml @ 1,000 mls/hr 1X ONCE IV Last administered on at 02:41; Start 11/04/18 at 02:45; Stop 11/04/18 at 03:44; Status DC Famotidine (Pepcid Vial) 20 mg 1X ONCE IVP Last administered on 11/04/18at 02: 40; Start 11/04/18 at 02:45; Stop 11/04/18 at 02:46; Status DC Iohexol (Omnipaque 350 Mg/ml) 90 ml 1X ONCE IV Last administered on 11/04/18at 03:39; Start 11/04/18 at 04:00; Stop 11/04/18 at 04:01; Status DC Info (CONTRAST GIVEN -- Rx MONITORING) 1 each PRN DAILY PRN MC SEE COMMENTS; Start 11/04/18 at 03:30; Stop 11/06/18 at 03:29; Status DC Ondansetron HCl (Zofran) 4 mg PRN Q8HRS PRN IV NAUSEA/VOMITING 1ST CHOICE; Start 11/04/18 at 04:30; Stop 11/05/18 at 04:29; Status DC Fentanyl Citrate (Fentanyl 2ml Vial) 50 mcg PRN Q2HRS PRN IV SEVERE PAIN; Start 11/04/18 at 04:30 Sodium Chloride 1,000 ml @ 100 mls/hr 1X ONCE IV Last administered on at 05:00; Start 11/04/18 at 05:00; Stop 11/04/18 at 14:59; Status DC Prochlorperazine Edisylate (Compazine) 10 mg PRN Q6HRS PRN IV HEADACHE/N/V Last administered on 11/04/18at 12:09; Start 11/04/18 at 10:45 Clonidine HCl (Catapres) 0.3 mg QHS PO Last administered on 11/05/18at 20:41; Start 11/04/18 at 21:00 Acetaminophen/ Hydrocodone Bitart (Lortab 7.5/325) 2 tab PRN BID PRN PO PAIN MODERATE TO SEVERE Last administered on 11/06/18at 10:10; Start 11/04/18 at 10:45 Tramadol HCl (Ultram) 50 mg PRN Q6HRS PRN PO PAIN MILD Last administered on at 10:07; Start 11/04/18 at 10:45 Citalopram Hydrobromide (CeleXA) 40 mg DAILY PO Last administered on 11/06/18 09:58; Start 11/04/18 at 12:00 Diclofenac Sodium (Voltaren) 75 mg BID PO Last administered on 11/06/18 09:59 ; Start 11/04/18 at 12:00 Divalproex Sodium (Depakote) 1,000 mg BID PO Last administered on 11/06/18 09: 58; Start 11/04/18 at 12:00 Cetirizine HCl (ZyrTEC) 10 mg DAILY PO Last administered on 11/06/18 09:59; Start 11/04/18 at 12:00 Losartan Potassium (Cozaar) 100 mg DAILY PO Last administered on 11/06/18 09: 59; Start 11/04/18 at 12:00 Montelukast Sodium (Singulair) 10 mg DAILY PO Last administered on 11/06/18 09 :58; Start 11/04/18 at 12:00 Famotidine (Pepcid) 20 mg DAILY PO Last administered on 11/06/18 09:59; Start 11/04/18 at 12:00 Pantoprazole Sodium (PROTONIX VIAL for IV PUSH) 40 mg 1X ONCE IVP Last administered on 11/04/18 12:09; Start 11/04/18 at 10:45; Stop 11/04/18 at 10:54 ; Status DC Meclizine HCl (Antivert) 12.5 mg PRN Q6HRS PRN PO DIZZINESS; Start 11/04/18 at 11:15 Active Scripts Active Reported Ranitidine Hcl 300 Mg Capsule 1 Cap PO DAILY Losartan Potassium 100 Mg Tablet 100 Mg PO DAILY Levocetirizine Dihydrochloride 5 Mg Tablet 1 Tab PO DAILY Hydrocodone-Apap 7.5-325 (Hydrocodone Bit/Acetaminophen) 1 Tab Tablet 2 Tab PO BID PRN Voltaren-Xr (Diclofenac Sodium) 100 Mg Tab.er.24h 75 Mg PO BID Tramadol Hcl 50 Mg Tablet 50 Mg PO Q6HRS PRN Montelukast Sodium Tablet (Montelukast Sodium) 10 Mg Tablet 1 Tab PO DAILY Estradiol 0.5 Mg Tablet 1 Tab PO DAILY Citalopram Hbr (Citalopram Hydrobromide) 40 Mg Tablet 1 Tab PO DAILY Clonidine Hcl 0.3 Mg Tablet 1 Tab PO QHS Depakote (Divalproex Sodium) 500 Mg Tablet.dr 1,000 Mg PO BID Vitals/I & O Vital Sign - Last 24 Hours 11/05/18 11/05/18 11/05/18 11/05/18 14:51 16:42 17:42 19:40 Temp 97.2 97.6 97.2 97.6 Pulse 53 57 Resp 16 18 18 B/P (MAP) 140/63 (88) 143/72 (95) Pulse Ox 97 97 97 97 O2 Delivery Room Air Room Air Room Air Room Air 11/05/18 11/05/18 11/06/18 11/06/18 20:41 23:35 03:40 07:48 Temp 97.8 97.9 98.3 97.8 97.9 98.3 Pulse 59 57 56 54 Resp 18 18 18 B/P (MAP) 143/72 146/70 (95) 127/63 (84) 145/70 (95) Pulse Ox 96 94 95 O2 Delivery Room Air Room Air Room Air 11/06/18 11/06/18 11/06/18 11/06/18 08:00 09:59 10:07 10:10 Pulse 54 B/P (MAP) 145/70 O2 Delivery Room Air Room Air Room Air 11/06/18 10:43 Temp 98.2 98.2 Pulse 55 Resp 18 B/P (MAP) 171/82 (111) Pulse Ox 96 O2 Delivery Room Air Intake and Output 11/05/18 11/05/18 11/06/18 15:00 23:00 07:00 Intake Total 240 ml 700 ml 560 ml Output Total 175 ml Balance 240 ml 700 ml [address] MAXILLOFACIAL WO CONTRAST Indication: Chronic headaches Technique: Noncontrast CT imaging was performed of the maxillofacial region, multiplanar reconstruction images submitted. One or more of the following individualized dose reduction techniques were utilized for this examination: 1. Automated exposure control 2. Adjustment of the mA and/or kV according to patient size 3. Use of iterative reconstruction technique. Comparison: None Findings: There are no air-fluid levels of the paranasal sinuses. Ostiomeatal units are patent bilaterally. Paranasal sinuses are aerated without significant mucosal thickening. Globes are symmetric in appearance, slightly disconjugate gaze. There is a focus of density eroding through the anterior cortex of the right anterior parasagittal mandible apparently protruding beyond the plane of the bone into the adjacent soft tissues, focus of density in this region about 1.1 cm transverse by about 1 cm AP by 1.4 cm cc. Internal density measurements are not of simple cyst at 64 Hounsfield units. IMPRESSION: 1. Paranasal sinuses are aerated without air-fluid levels. 2. There is focus of smooth bony erosion of the anterior right parasagittal mandible, lesion protruding anteriorly into the adjacent soft tissues. This is not have characteristics of a simple cyst, could be solid or complex cystic lesion with a broad differential. Fairly smooth margins of the eroded bone favors a more indolent or chronic process. JARAD MORRIS MD Nov 06, 2018 11:30
[2018-11-06] MEDS ORDERED: DICL75TA PO (11:43)
[2018-11-06] MEDS ORDERED: NICO1PAT21 TP (11:43)
[2018-11-06] MEDS ORDERED: BECL25SP NS (11:48)
[2018-11-06] MEDS ORDERED: TRAZ-118 PO (11:48)
[2018-11-06] MEDS ORDERED: ALBU2.5V8 INH (11:48)
--- NOTE | 2018-11-06 12:35 | NUR ---
SS following up with discharge planning. Pt recommended [facility] unit. Pt has [employer] [facility] [place] Medicaid and would have option of Acute Rehab vs Home Healthcare pending insurance approval. SS met with pt and discussed. Pt declined acute rehabilitation and stated that she would return to home with home healthcare with no preference of company. Pt reported that her grandson cares for her at home. Pt's RN notified.
[2018-11-06] MEDS ORDERED: HYDR-2765 PO (13:00)
--- NOTE | 2018-11-06 13:08 | SNU/HH DC ---
DISCHARGE WITH HOME HEALTH DISCHARGE INFORMATION: Discharge Date: Nov 06, 2018 Final Diagnosis: Problems Medical Problems: (1) Chest pain Status: Acute Condition on Discharge: Stable CODE STATUS: Code Status: Full HOME HEALTH: Face to Face: I certify this patient is under my care and that I, or a nurse practitioner or physician's assistant family teacher working with me, had a face to face encounter that meets the physician face to face encounter requirements with this patient on 11/06/18. Medical Complications: COPD, HTN Long-Term For: Assess & Educate Safety, Medication Management RN For Eval/Treatment: Yes Physical Therapy For: Evalulation/Treatment Occupational Therapy For: Evaluation/Treatment Home Health Aide For: Self-care Pt Meets Homebound Status: Poor coordination w/ amb. POST DISCHARGE ORDERS: Activity Instructions for Disc: Activity as tolerated Weight Bearing Status after Di: As tolerated DIET AFTER DISCHARGE: Cardiac CHECKS AFTER DISCHARGE: Checks after discharge: Check blood press - daily, Check your Temp as needed TREATMENT/EQUIPMENT ORDERS: Adaptive Equipment Issued: Front wheeled walker CERTIFICATION STATEMENT: Certification Statement: Certification Statement: Based on the above finding, I certify that this patient is confined to the home and needs intermittent residential care, physical therapy and/or speech therapy, or continues to need occupational therapy.~ This patient is under my care, and I have initiated the establishment of the plan of care.~ This patient will be followed by myself or a community physician who will periodically review the plan of care. Home Meds Active Scripts Hydrocodone Bit/Acetaminophen (HYDROCODONE-APAP 7.5-325 ) 1 Tab Tablet, 2 TAB PO PRN Q6HRS PRN for PAIN for 6 Days, #24 TAB 0 Refills Prov:GIOVANNI SEO MD 11/06/18 Reported Medications Albuterol Sulfate (PROAIR HFA INHALER) 8.5 Gm Hfa.aer.ad, 2 PUFF INH PRN Q4- 6HRS PRN for SHORTNESS OF BREATH, INHALER 0 Refills 11/06/18 Beclomethasone Dipropionate (BECONASE AQ) 25 Gm [place], 25 GM NS DAILY for , SPRAY 11/06/18 Trazodone Hcl (TRAZODONE HCL) 50 Mg Tablet, 50 MG PO HS for INSOMNIA, TAB 11/06/18 Nicotine (NICODERM CQ 21mg) 1 Each Patch.td24, 1 PATCH TP DAILY for , #28 PATCH 1 Refill 11/06/18 Diclofenac Sodium (DICLOFENAC SODIUM) 75 Mg Tablet.dr, 75 MG PO DAILY for , TAB.SR 11/06/18 Ranitidine Hcl (RANITIDINE HCL) 300 Mg Capsule, 1 CAP PO DAILY for ppx, #30 CAP 3 Refills 11/04/18 Losartan Potassium (LOSARTAN POTASSIUM) 100 Mg Tablet, 100 MG PO DAILY for HYPERTENSION, TAB 11/04/18 Levocetirizine Dihydrochloride (LEVOCETIRIZINE DIHYDROCHLORIDE) 5 Mg Tablet, 1 TAB PO DAILY for p, #30 TAB 3 Refills 11/04/18 Tramadol Hcl (TRAMADOL HCL) 50 Mg Tablet, 50 MG PO Q6HRS PRN for PAIN, TAB 11/04/18 Montelukast Sodium (MONTELUKAST SODIUM TABLET) 10 Mg Tablet, 1 TAB PO DAILY, # 30 TAB 5 Refills 08/18/17 Citalopram Hydrobromide (CITALOPRAM HBR) 40 Mg Tablet, 1 TAB PO DAILY, #90 TAB 1 Refill 08/18/17 Divalproex Sodium (DEPAKOTE) 500 Mg Tablet.dr, 1000 MG PO BID, TAB 08/11/14 Discontinued Reported Medications Diclofenac Sodium (VOLTAREN-XR) 100 Mg Tab.er.24h, 75 MG PO BID for pain, TAB.SR 11/04/18 Estradiol (ESTRADIOL) 0.5 Mg Tablet, 1 TAB PO DAILY, #30 TAB 11 Refills 08/18/17 Clonidine Hcl (CLONIDINE HCL) 0.3 Mg Tablet, 1 TAB PO QHS, #30 TAB 2 Refills 08/12/14 Albuterol Sulfate (PROAIR HFA INHALER) 8.5 Gm Hfa.aer.ad, 1 PUFF INH PRN Q6HRS PRN for SHORTNESS OF BREATH, INHALER 0 Refills 08/17/17 Varenicline Tartrate (CHANTIX) 1 Each Tab.ds.pk, 1 EACH PO DIRECTED, TAB DAY 1-3 0.5 MG PO DAILY DAY 4-7 0.5 MG PO BID DAY 8-UNTIL END OF TREATMENT 1 MG PO BID 08/12/14 GIOVANNI SEO MD Nov 06, 2018 13:08
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
--- NOTE | 2018-11-06 13:54 | PDOC3 ---
Discharge Summary Visit Information Date of Admission: Nov 04, 2018 Date of Discharge: Nov 06, 2018 Admitting Diagnosis: Chest pain Final Diagnosis Problems Medical Problems: (1) Chest pain Status: Acute Brief Hospital Course Allergies Allergies Coded Allergies Type Severity Reaction Last Updated Verified Sulfa (Sulfonamide Antibiotics) Allergy Intermediate 08/19/17 Yes Vital Signs Vital Signs Date Time Temp Pulse Resp B/P (MAP) Pulse Ox O2 Delivery O2 Flow Rate FiO2 11/06/18 11:07 Room Air 11/06/18 10:43 98.2 55 18 171/82 (111) 96 98.2 Lab Results Laboratory Tests Test 11/06/18 04:00 Erythrocyte Sedimentation Rate 6 (0-25) C-Reactive Protein, Quantitative 1.6 mg/L (0-3.3) Thyroid Stimulating Hormone (TSH) 1.961 uIU/mL (0.358-3.74) Valproic Acid (Depakene) Level 69 mcg/mL (50-100) Valproic Acid Last Dose Date 11/05/18 Valproic Acid Last Dose Time 2100 Laboratory Tests Test 11/06/18 04:00 Erythrocyte Sedimentation Rate 6 (0-25) C-Reactive Protein, Quantitative 1.6 mg/L (0-3.3) Thyroid Stimulating Hormone (TSH) 1.961 uIU/mL (0.358-3.74) Valproic Acid (Depakene) Level 69 mcg/mL (50-100) Valproic Acid Last Dose Date 11/05/18 Valproic Acid Last Dose Time 2100 Brief Hospital Course Chest pain - reproducible. ruled out for ACS Intractable Headache - on NSAIDs, s Vertigo - dizziness of unclear etiology weakness and debility, poorly ambulatory Chronic back pain - will cont home meds Arthritis - cont home meds GERD - will advance to PPI Hypertension - will cont meds Seizures - will cont keppra. Consult neurology History of Present Illness History of Present Illness Ms Alcantara is a 63-year-old female w/ PMHx vertigo, chronic back pain, Arthritis, GERD, Hypertension, Seizures presents via EMS with report of midsternal chest pain which radiates to her back which started 2 days ago. Patient does report associated nausea. Denies diaphoresis. Patient reports pain is currently 8 out of 10 and is sharp in nature. Patient does report the pain is intermittent. Patient does report some associated shortness of breath which is worse with deep inspiration. It is reproducible with palpation. Patient does report some lower extremity pain right greater than left. Denies any swelling. Denies history of DVT/PE. Cardiac risk factors of high blood pressure, high cholesterol, family MA history, and former smoking. Denies trauma. She also c/o severe headache and dizziness, is unable to stand on her own without maximal assistance. Also endorses nausea not remitted with zofran IV. CTPA negative for PE. Troponin negative Had MPI 08/19/2017: 1. No EKG evidence of stressed induced ischemia. 2. Nuclear imaging shows no reversible ischemia or infarct. 3. Normal left ventricular systolic function with ejection fraction of 71%. 4. Low risk Lexiscan nuclear stress test. Feels better today. Headache improved. Chest pain resolving. Wants to leave Home PT and OT. Front wheeled walker PT recs SNU - She will not go, wants home health neuro consult recommends avoiding seizure threshold lowering meds and to consider changing to cymbalta, she says she cannot due to costs. Greater than 30 minutes spent on discharge. Discharge Information Condition at Discharge: Improved Follow Up: Weeks (2) Disposition/Orders: D/C to Home w/ HH Scheduled Beclomethasone Dipropionate (Beconase Aq) 25 Gm [place], 25 GM NS DAILY for , ( Reported) Entered as Reported by: Elpidio Rasheed on 11/06/181147 Last Taken: 80 MCG on Unknown Date & Time Last Action: New Order on 1147 by Elpidio Rasheed Citalopram Hydrobromide (Citalopram Hbr) 40 Mg Tablet, 1 TAB PO DAILY, #90 Ref 1 (Reported) Entered as Reported by: TRISTA MACK on 08/18/17 1507 Last Action: Converted on 11/04/18 1050 by GIOVANNI SEO MD Diclofenac Sodium (Diclofenac Sodium) 75 Mg Tablet., 75 MG PO DAILY for , ( Reported) Entered as Reported by: Elpidio Rasheed on 11/06/18 114 Last Action: New Order on 11/06/181142 by Elpidio Rasheed Divalproex Sodium (Depakote) 500 Mg Tablet., 1,000 MG PO BID, (Reported) Entered as Reported by: Marko Hagan on 08/11/14 2318 Last Action: Converted on 11/04/181049 by GIOVANNI SEO MD Levocetirizine Dihydrochloride (Levocetirizine Dihydrochloride) 5 Mg Tablet, 1 TAB PO DAILY for p, #30 Ref 3 (Reported) Entered as Reported by: MASOUD LYLES on 11/04/18913 Last Action: Converted on 11/04/181049 by GIOVANNI SEO MD Losartan Potassium (Losartan Potassium) 100 Mg Tablet, 100 MG PO DAILY for HYPERTENSION, (Reported) Entered as Reported by: MASOUD LYLES on 11/04/18913 Last Action: Converted on 11/04/181049 by GIOVANNI SEO MD Montelukast Sodium (Montelukast Sodium Tablet) 10 Mg Tablet, 1 TAB PO DAILY, # 30 Ref 5 (Reported) Entered as Reported by: TRISTA MACK on 08/18/17 1507 Last Action: Converted on 11/04/181049 by GIOVANNI SEO MD Nicotine (NICODERM CQ 21mg) 1 Each Patch.td24, 1 PATCH TP DAILY for , #28 Ref 1 (Reported) Entered as Reported by: Elpidio Rasheed on 11/06/181142 Last Taken: 1 PATCH on Unknown Date & Time Last Action: New Order on 11/06 by Elpidio Rasheed Ranitidine Hcl (Ranitidine Hcl) 300 Mg Capsule, 1 CAP PO DAILY for ppx, #30 Ref 3 (Reported) Entered as Reported by: MASOUD LYLES on 11/04/18913 Last Action: Converted on 11/04/181049 by GIOVANNI SEO MD Trazodone Hcl (Trazodone Hcl) 50 Mg Tablet, 50 MG PO HS for INSOMNIA, (Reported) Entered as Reported by: Elpidio Rasheed on 11/06/181147 Last Taken: 50 on Unknown Date & Time Last Action: New Order on 11/06/181147 by Elpidio Rasheed Scheduled PRN Albuterol Sulfate (Proair Hfa Inhaler) 8.5 Gm Hfa.aer.ad, 2 PUFF INH PRN Q4- 6HRS PRN for SHORTNESS OF BREATH, Ref 0 (Reported) Entered as Reported by: Elpidio Rasheed on 11/06/18 1148 Last Taken: 2 PUFFS on Unknown Date & Time Last Action: New Order on 11/06 1148 by Elpidio Rasheed Hydrocodone Bit/Acetaminophen (Hydrocodone-Apap 7.5-325 ) 1 Tab Tablet, 2 TAB PO PRN Q6HRS PRN for PAIN for 6 Days, #24 Ref 0 Prescribed by: GIOVANNI SEO MD on 11/06/18 1300 Tramadol Hcl (Tramadol Hcl) 50 Mg Tablet, 50 MG PO Q6HRS PRN for PAIN, (Reported ) Entered as Reported by: TARUN SENA on 11/04/18 0607 Last Action: Continued on 11/04/18 105 by GIOVANNI SEO MD Discontinued Medications Albuterol Sulfate (Proair Hfa Inhaler) 8.5 Gm Hfa.aer.ad, 1 PUFF INH PRN Q6HRS PRN for SHORTNESS OF BREATH, Ref 0 (Reported) Entered as Reported by: MIGEL AGUILAR on 08/17/17 1543 Last Action: Discontinued on 11/04/18 06 by TARUN SENA Clonidine Hcl (Clonidine Hcl) 0.3 Mg Tablet, 1 TAB PO QHS, #30 Ref 2 (Reported) Entered as Reported by: DONN COLIN on 08/12/14 0907 Last Action: Continued on 11/04/18 105 by GIOVANNI SEO MD Diclofenac Sodium (Voltaren-Xr) 100 Mg Tab.er.24h, 75 MG PO BID for pain, ( Reported) Discontinued Reason: Prescription changed Entered as Reported by: MASOUD LYLES on 11/04/18 0914 Last Action: Converted on 11/04/18 105 by GIOVANNI SEO MD Estradiol (Estradiol) 0.5 Mg Tablet, 1 TAB PO DAILY, #30 Ref 11 (Reported) Entered as Reported by: TRISTA MACK on 08/18/17 1507 Last Action: HELD on 11/04/18 1049 by GIOVANNI SEO MD Varenicline Tartrate (Chantix) 1 Each Tab.ds.pk, 1 EACH PO DIRECTED, ( Reported) DAY 1-3 0.5 MG PO DAILY DAY 4-7 0.5 MG PO BID DAY 8-UNTIL END OF TREATMENT 1 MG PO BID Entered as Reported by: DONN COLIN on 08/12/14918 Last Action: Discontinued on 11/04/18605 by GIOVANNI YI MD Nov 06, 2018 13:54
[2018-11-06 14:56] VITALS: BP 149/77
--- NOTE | 2018-11-06 15:18 | NUR ---
SS following up with discharge planning. Discharge orders received for home healthcare and rolling walker. SS phoned and faxed referral for home healthcare to [facility], ; fax [phone], as they reported that they were in network with pt's insurance. SS phoned and faxed walker order to [facility], ; [phone]. [facility] reported that the walker will be delivered tomorrow, 11/07/2018, to pt's home. Pt's RN notified.
--- NOTE | 2018-11-06 16:10 | NUR ---
Discharge Note: LANDON MOYER Discharge instructions and discharge home medications reviewed with Patient and a copy given. All questions have been answered and understanding verbalized. The following instructions and handouts were given: medication list, written prescription and follow up phone numbers Discontinued lines and drains: IV with pressure dressing intact. Patient discharged to home with home health with family memeber via wheelchair
[2018-11-07 00:54] LABS: HEMOGLOBIN A1C 5.6 % (4.8-5.6)
== END 2018-11-06 15:25 | disposition home health service (06) | DRG 206 ==
LOC: ER 01:38 → OBSVTOIN 04:15 → 2 NORTH 04:15 → ER 04:45
PROVIDERS: ADMIT Internal Medicine; ATTEND Internal Medicine
DX: M94.0 Chondrocostal junction syndrome [Tietze] (principal); K21.9 Gastro-esophageal reflux disease without esophagitis; F17.210 Nicotine dependence, cigarettes, uncomplicated; G40.909 Epilepsy, unspecified, not intractable, without status epilepticus; G89.29 Other chronic pain; I10 Essential (primary) hypertension; R42 Dizziness and giddiness; J44.9 Chronic obstructive pulmonary disease, unspecified; M19.90 Unspecified osteoarthritis, unspecified site; Z82.49 Family history of ischemic heart disease and other diseases of the circulatory system; Z90.710 Acquired absence of both cervix and uterus; Z79.899 Other long term (current) drug therapy; Z88.2 Allergy status to sulfonamides
CPT/HCPCS: 36415; 70486; 71275; 80053; 80164; 82553; 83036; 83690; 83735; 83880; 84443; 84484; 85025; 85610; 85651; 86140; 93005; 93306; 96361; 96374; 99406; C9113; J0780; J3490; J7030; Q9967; 97110; 97116; 97530; 99285-25

== ENCOUNTER → 2018-12-14 | Outpatient (CLI) | payer OTHER ==
[~2018-12-14] MED LIST changes: +BECL25SP NS; +DICL100T PO; +DICL75TA PO; +LEVO5TAB2 PO; +LOSA100T14 PO; +NICO1PAT21 TP; +RANI300C PO
--- NOTE | 2018-12-14 14:05 | RAD ---
DATE: 12/14/2018 EXAM: DIGITAL SCREEN BILAT W/CAD HISTORY: Routine screening COMPARISON: Baseline study This study was interpreted with the benefit of Computerized Aided Detection (CAD). Breast Density: HETERO The breast parenchyma is heterogenously dense, which could reduce sensitivity of mammography. Breast parenchyma level C. FINDINGS: No suspicious breast densities or suspicious microcalcifications are seen. Small benign-appearing lymph node type densities are partially visualized projected over the axillary regions. A benign type calcification is present in the left. IMPRESSION: There is no mammographic evidence of malignancy in either breast. BI-RADS CATEGORY: 2 BENIGN FINDING(S) RECOMMENDED FOLLOW-UP: 12M 12 MONTH FOLLOW-UP PQRS compliance statement: Patient information was entered into a reminder system with a target due date for the next mammogram. Mammography is a sensitive method for finding small breast cancers, but it does not detect them all and is not a substitute for careful clinical examination. A negative mammogram does not negate a clinically suspicious finding and should not result in delay in biopsying a clinically suspicious abnormality. "Our facility is accredited by the [employer] Mammography Program."
--- NOTE | 2018-12-14 14:37 | RAD ---
Lumbar spine, 3 views, 12/14/2018: HISTORY: Low back pain There are small accessory ribs at L1. The lumbar vertebral heights are well-maintained. There are mild scattered marginal spurs. There is mild disc space narrowing at L5-S1. There are moderate degenerative changes involving the facet joints bilaterally in the lower lumbar spine. The paraspinous soft tissues are unremarkable. IMPRESSION: 1. Mild to moderate multilevel degenerative change. 2. No acute bony abnormality is detected. Electronically signed by: Aba Dupree MD (12/14/2018 2:34 PM) [facility]
== END | disposition home or self-care (01) ==
LOC: MAMMO 12:51
PROVIDERS: ATTEND Family Medicine
DX: Z12.31 Encounter for screening mammogram for malignant neoplasm of breast (principal); R92.8 Other abnormal and inconclusive findings on diagnostic imaging of breast; M47.816 Spondylosis without myelopathy or radiculopathy, lumbar region; M48.07 Spinal stenosis, lumbosacral region
CPT/HCPCS: 72100; 77067

== ENCOUNTER 2019-07-11 01:57 | Emergency (ER) | payer OTHER ==
[~2019-07-11] VITALS: Ht 160 cm; Wt 66.7 kg
[~2019-07-11 01:57] MED LIST changes: +MONT10TA49 PO; -MONT10TA9 PO
--- NOTE | 2019-07-11 02:14 | PHYS DOC ---
Past Medical History Past Medical History: Arthritis, GERD, Hypertension, Seizure, Other Additional Past Medical Histor: VERTIGO, CHRONIC BACK PAIN Past Surgical History: Cholecystectomy, Hysterectomy, Other Additional Past Surgical Histo: CYSTECTOMY, NASAL Alcohol Use: None Drug Use: None Adult General Chief Complaint Chief Complaint: CHEST PAIN HPI HPI Patient is a 64-year-old female who presents with complaint of midsternal chest pain that radiates into her back. Patient states that she has had the pain for the last 2 days. She states that it is worse with coughing and with palpation. Patient rates the pain at a 9 out of 10. She states that she is also had a productive cough for the last couple of days. She states the cough is been productive of green sputum. She denies any nausea, vomiting or diaphoresis.[] Review of Systems Review of Systems Constitutional: Denies fever or chills [] Respiratory: Complains of cough without shortness of breath [] Cardiovascular: No additional information not addressed in HPI [] GI: Denies abdominal pain, nausea, vomiting or diarrhea [] Musculoskeletal: Denies back pain or joint pain [] Integument: Denies rash or skin lesions [] Neurologic: Denies headache, focal weakness or sensory changes [] All other systems were reviewed and found to be within normal limits, except as documented in this note. Current Medications Current Medications Current Medications Medications (Trade) Dose Ordered Sig/Onel Start Time Stop Time Status Last Admin Dose Admin Morphine Sulfate (Morphine Sulfate) 4 mg PRN Q15MIN PRN 07/11/19 02:15 07/12/19 02:14 07/11/19 02:30 4 MG Sodium Chloride 1,000 ml @ 1,000 mls/hr Q1H 07/11/19 02:15 07/11/19 03:14 07/11/19 02:30 1,000 MLS/HR Allergies Allergies Allergies Coded Allergies Type Severity Reaction Last Updated Verified Sulfa (Sulfonamide Antibiotics) Allergy Intermediate 08/19/17 Yes Physical Exam Physical Exam Constitutional: Well developed, well nourished, no acute distress, non-toxic appearance. [] HENT: Normocephalic, atraumatic, bilateral external ears normal, oropharynx moist, no oral exudates, nose normal. [] Eyes: PERRLA, EOMI, conjunctiva normal, no discharge. [] Neck: Normal range of motion, no tenderness, supple. [] Cardiovascular: Regular rate and rhythm. There is reproducible chest wall ten derness along the bilateral sternal borders.[] Lungs & Thorax: Bilateral breath sounds clear to auscultation [] Abdomen: Bowel sounds normal, soft, no tenderness. [] Skin: Warm, dry, no erythema, no rash. [] Extremities: No tenderness, no cyanosis, no clubbing, ROM intact, no edema. [] Neurologic: Alert and oriented X 3, no focal deficits noted. [] Current Patient Data Vital Signs Vital Signs Date Time Temp Pulse Resp B/P (MAP) Pulse Ox O2 Delivery O2 Flow Rate FiO2 07/11/19 01:58 98.4 64 20 178/84 (115) 97 Room Air 98.4 Lab Values Laboratory Tests Test 07/11/19 02:10 White Blood Count 6.6 x10^3/uL (4.0-11.0) Red Blood Count 4.40 x10^6/uL (3.50-5.40) Hemoglobin 11.8 g/dL (12.0-15.5) L Hematocrit 36.2 % (36.0-47.0) Mean Corpuscular Volume 82 fL (79-100) Mean Corpuscular Hemoglobin 27 pg (25-35) Mean Corpuscular Hemoglobin Concent 33 g/dL (31-37) Red Cell Distribution Width 15.5 % (11.5-14.5) H Platelet Count 253 x10^3/uL (140-400) Neutrophils (%) (Auto) 36 % (31-73) Lymphocytes (%) (Auto) 49 % (24-48) H Monocytes (%) (Auto) 14 % (0-9) H Eosinophils (%) (Auto) 1 % (0-3) Basophils (%) (Auto) 1 % (0-3) Neutrophils # (Auto) 2.3 x10^3/uL (1.8-7.7) Lymphocytes # (Auto) 3.2 x10^3/uL (1.0-4.8) Monocytes # (Auto) 0.9 x10^3/uL (0.0-1.1) Eosinophils # (Auto) 0.1 x10^3/uL (0.0-0.7) Basophils # (Auto) 0.0 x10^3/uL (0.0-0.2) Segmented Neutrophils % 34 % (35-66) L Band Neutrophils % 2 % (0-9) Lymphocytes % 52 % (24-48) H Atypical Lymphocytes % (Manual) 3 % (0-0) H Monocytes % 7 % (0-10) Eosinophils % 1 % (0-5) Metamyelocytes % 1 % (0-0) H Platelet Estimate Adequate (ADEQUATE) Hypochromasia Slight Poikilocytosis Slight Anisocytosis Slight Ovalocytes Few Helmet Cells Occ Sodium Level 142 mmol/L (136-145) Potassium Level 3.7 mmol/L (3.5-5.1) Chloride Level 105 mmol/L (98-107) Carbon Dioxide Level 30 mmol/L (21-32) Anion Gap 7 (6-14) Blood Urea Nitrogen 13 mg/dL (7-20) Creatinine 0.8 mg/dL (0.6-1.0) Estimated GFR (Cockcroft-Gault) 87.1 BUN/Creatinine Ratio 16 (6-20) Glucose Level 96 mg/dL (70-99) Calcium Level 8.7 mg/dL (8.5-10.1) Magnesium Level 2.1 mg/dL (1.8-2.4) Total Bilirubin 0.1 mg/dL (0.2-1.0) L Aspartate Amino Transferase (AST) 18 U/L (15-37) Alanine Aminotransferase (ALT) 16 U/L (14-59) Alkaline Phosphatase 69 U/L (46-116) Troponin I Quantitative < 0.017 ng/mL (0.000-0.055) JN-Fiq-K-Type Natriuretic Peptide 98 pg/mL (0-124) Total Protein 7.0 g/dL (6.4-8.2) Albumin 3.3 g/dL (3.4-5.0) L Albumin/Globulin Ratio 0.9 (1.0-1.7) L Lipase 77 U/L (73-393) Laboratory Tests 07/11/19 02:10 Laboratory Tests 07/11/19 02:10 EKG EKG EKG demonstrates normal sinus rhythm with rate of 65.[] Radiology/Procedures Radiology/Procedures [] Impressions: Chest x-ray demonstrates no acute process Course & Med Decision Making Course & Med Decision Making Pertinent Labs and Imaging studies reviewed. (See chart for details) [] Dragon Disclaimer Dragon Disclaimer This electronic medical record was generated, in whole or in part, using a voice recognition dictation system. Departure Departure Impression: Primary Impression: Chest wall pain Additional Impression: Acute bronchitis Disposition: HOME, SELF-CARE Condition: STABLE Referrals: [facility] MD (PCP) Patient Instructions: Acute Bronchitis, Chest Wall Pain Scripts Guaifenesin/Codeine Phosphate (Codeine-Guaifen 10-100 mg/5 ml) 120 Ml Liquid 5 ML PO PRN Q6HRS PRN for cough and congestion MDD 20 Milliliter(s) for 6 Days, #120 ML 0 Refills Prov: SULAIMAN CARDONA Jr. DO 07/11/19 Azithromycin (ZITHROMAX) 250 Mg Tablet 1 PKG PO UD, #6 TAB Prov: SULAIMAN CARDONA Jr. DO 07/11/19 Problem Qualifiers Additional Impression: Acute bronchitis Bronchitis organism: unspecified organism Qualified Codes: J20.9 - Acute bronchitis, unspecified SULAIMAN CARDONA Jr. DO Jul 11, 2019 02:14
[2019-07-11] MEDS ORDERED: IV NORMAL SALINE 1000ML BAG 1,000 ML IV SCH (02:15)
[2019-07-11] MEDS ORDERED: MORPHINE SULFATE 4 MG/ML VIAL. IV/SQ PRN (02:15)
[2019-07-11 02:24] LABS: BASO % 1 % (0-3); EOS # 0.1 x10^3/uL (0.0-0.7); EOS % 1 % (0-3); HEMATOCRIT 36.2 % (36.0-47.0); HEMOGLOBIN 11.8 g/dL (12.0-15.5); LYMPH # 3.2 x10^3/uL (1.0-4.8); LYMPH % 49 % (24-48); MEAN CORPUSCULAR HEMOGLOBIN 27 pg (25-35); MEAN CORPUSCULAR HGB CONC 33 g/dL (31-37); MEAN CORPUSCULAR VOLUME 82 fL (79-100); MONO # 0.9 x10^3/uL (0.0-1.1); MONO % 14 % (0-9); NEUT # 2.3 x10^3/uL (1.8-7.7); NEUT % 36 % (31-73); PLATELET COUNT 253 x10^3/uL (140-400); RED CELL DISTRIBUTION WIDTH 15.5 % (11.5-14.5); WHITE BLOOD COUNT 6.6 x10^3/uL (4.0-11.0)
[2019-07-11 02:33] LABS: CALCIUM 8.7 mg/dL (8.5-10.1); CREATININE 0.8 mg/dL (0.6-1.0); GFR 87.1; POTASSIUM 3.7 mmol/L (3.5-5.1)
[2019-07-11 02:41] LABS: ALBUMIN 3.3 g/dL (3.4-5.0); ALBUMIN/GLOBULIN RATIO 0.9 (1.0-1.7); MAGNESIUM 2.1 mg/dL (1.8-2.4); TOTAL BILIRUBIN 0.1 mg/dL (0.2-1.0)
[2019-07-11 02:57] LABS: % ATYL 3 % (0-0); % BANDS 2 % (0-9); % EOS 1 % (0-5); % LYMPHS 52 % (24-48); % METAS 1 % (0-0); % MONOS 7 % (0-10); % SEGS 34 % (35-66); ANISOCYTOSIS SLIGHT; HELMET CELLS OCC; HYPOCHROMIA SLIGHT; OVALOCYTES FEW; PLT ESTIMATE ADEQUATE (ADEQUATE); POIKILOCYTOSIS SLIGHT
[2019-07-11] MEDS ORDERED: GUAI120L35 PO (03:12)
[2019-07-11] MEDS ORDERED: AZIT250T PO (03:12)
[2019-07-11 03:30] VITALS: BP 165/80
[2019-07-11] MEDS ORDERED: AZITHROMYCIN 250 MG TABLET. PO ONE (03:30)
--- NOTE | 2019-07-11 04:24 | EKG ---
[facility] [address] [place] [address] Test Date: 2019-07-11 Test Time: 02:05:27 Pat Name: LANDON MOYER Department: Room: Gender: F Tire Mechanic: : 1955 Requested By: SULAIMAN CARDONA Order Number: [id number] Reading MD: Measurements Intervals [place] Rate: 65 P: 47 HI: 164 QRS: 22 QRSD: 82 T: 28 QT: 402 QTc: 418 Interpretive Statements SINUS RHYTHM NORMAL ECG No previous ECG available for comparison
--- NOTE | 2019-07-11 04:58 | RAD ---
PORTABLE CHEST 1V INDICATION: Chest pain. COMPARISON STUDY: CT 11/04/2018. FINDINGS: Lungs: Normal lung volume. Retrocardiac opacities. The tracheobronchial tree and hilar structures are normal. Pleura: No pleural effusion or pneumothorax. Heart and Mediastinum: The cardiomediastinal silhouette is normal. Atherosclerotic thoracic aorta. IMPRESSION: Retrocardiac opacities, which may represent an infectious/inflammatory process. Electronically signed by: Kojo Jc MD (07/11/2019 4:55 AM) [facility]
== END 2019-07-11 03:40 | disposition home or self-care (01) ==
LOC: ER 01:57
DX: J20.9 Acute bronchitis, unspecified (principal); R07.2 Precordial pain; I10 Essential (primary) hypertension; K21.9 Gastro-esophageal reflux disease without esophagitis; G89.29 Other chronic pain; Z88.2 Allergy status to sulfonamides
CPT/HCPCS: 36415; 71045; 80053; 83690; 83735; 83880; 84484; 85007; 85025; 93005; 96374; 99285; J2270; J7030; Q0144; 96361

== ENCOUNTER 2019-07-24 18:56 | Emergency (ER) | payer OTHER ==
[~2019-07-24] VITALS: Ht 160 cm; Wt 65.8 kg
[~2019-07-24 18:56] MED LIST changes: +AZIT250T PO; +GUAI120L35 PO
--- NOTE | 2019-07-24 19:20 | PHYS DOC ---
Past Medical History Past Medical History: Arthritis, Asthma, GERD, Hypertension, Seizure, Other Additional Past Medical Histor: VERTIGO, CHRONIC BACK PAIN Past Surgical History: Cholecystectomy, Hysterectomy, Other Additional Past Surgical Histo: CYSTECTOMY, NASAL Alcohol Use: None Drug Use: None Adult General Chief Complaint Chief Complaint: SEIZURE HPI HPI 64-year-old female presents to the emergency Department complaints of seizure. Patient has underlying history of seizure disorder, hypertension. Family witnessed 3 minute tonic-clonic seizure, postictal state. Recent medications for upper respiratory tract infection according to family. She follows with neurology [facility]. Patient denies any chest pain, shortness of breath, nausea, vomiting, headache or visual change. She is slow to respond but appears to be alert and oriented Review of Systems Review of Systems Constitutional: Denies fever or chills [] Respiratory: Denies cough or shortness of breath [] Cardiovascular: No additional information not addressed in HPI [] GI: Denies abdominal pain, nausea, vomiting, bloody stools or diarrhea [] Musculoskeletal: Denies back pain or joint pain [] Integument: Denies rash or skin lesions [] Neurologic: Denies headache, focal weakness or sensory changes [] All other systems were reviewed and found to be within normal limits, except as documented in this note. Allergies Allergies Allergies Coded Allergies Type Severity Reaction Last Updated Verified Sulfa (Sulfonamide Antibiotics) Allergy Intermediate 08/19/17 Yes Physical Exam Physical Exam Constitutional: Well developed, well nourished, no acute distress, non-toxic appearance. [] HENT: Normocephalic, atraumatic, bilateral external ears normal, oropharynx moist, no oral exudates, nose normal. [] Eyes: PERRLA, EOMI, conjunctiva normal, no discharge. [] Cardiovascular:Heart rate regular rhythm, no murmur [] Lungs & Thorax: Bilateral breath sounds clear to auscultation [] Abdomen: Bowel sounds normal, soft, no tenderness, no masses, no pulsatile masses. [] Skin: Warm, dry, no erythema, no rash. [] Extremities: No tenderness, no edema. [] Neurologic: Alert and oriented X 3, no focal deficits noted. [] Psychologic: Affect normal, judgement normal, mood normal. [] Current Patient Data Vital Signs Vital Signs Date Time Temp Pulse Resp B/P (MAP) Pulse Ox O2 Delivery O2 Flow Rate FiO2 07/24/19 18:58 98.6 104 18 153/85 (107) 97 Room Air 98.6 Lab Values Laboratory Tests Test 07/24/19 19:50 White Blood Count 7.5 x10^3/uL (4.0-11.0) Red Blood Count 4.75 x10^6/uL (3.50-5.40) Hemoglobin 12.5 g/dL (12.0-15.5) Hematocrit 39.3 % (36.0-47.0) Mean Corpuscular Volume 83 fL (79-100) Mean Corpuscular Hemoglobin 26 pg (25-35) Mean Corpuscular Hemoglobin Concent 32 g/dL (31-37) Red Cell Distribution Width 16.2 % (11.5-14.5) H Platelet Count 293 x10^3/uL (140-400) Neutrophils (%) (Auto) 55 % (31-73) Lymphocytes (%) (Auto) 35 % (24-48) Monocytes (%) (Auto) 7 % (0-9) Eosinophils (%) (Auto) 2 % (0-3) Basophils (%) (Auto) 2 % (0-3) Neutrophils # (Auto) 4.2 x10^3/uL (1.8-7.7) Lymphocytes # (Auto) 2.6 x10^3/uL (1.0-4.8) Monocytes # (Auto) 0.5 x10^3/uL (0.0-1.1) Eosinophils # (Auto) 0.1 x10^3/uL (0.0-0.7) Basophils # (Auto) 0.1 x10^3/uL (0.0-0.2) Sodium Level 142 mmol/L (136-145) Potassium Level 3.8 mmol/L (3.5-5.1) Chloride Level 106 mmol/L (98-107) Carbon Dioxide Level 27 mmol/L (21-32) Anion Gap 9 (6-14) Blood Urea Nitrogen 21 mg/dL (7-20) H Creatinine 0.8 mg/dL (0.6-1.0) Estimated GFR (Cockcroft-Gault) 87.1 BUN/Creatinine Ratio 26 (6-20) H Glucose Level 83 mg/dL (70-99) Lactic Acid Level 2.9 mmol/L (0.4-2.0) H Calcium Level 9.0 mg/dL (8.5-10.1) Total Bilirubin 0.2 mg/dL (0.2-1.0) Aspartate Amino Transferase (AST) 15 U/L (15-37) Alanine Aminotransferase (ALT) 16 U/L (14-59) Alkaline Phosphatase 59 U/L (46-116) Total Protein 7.6 g/dL (6.4-8.2) Albumin 3.7 g/dL (3.4-5.0) Albumin/Globulin Ratio 0.9 (1.0-1.7) L Valproic Acid Level 48 mcg/mL (50-100) L Valproic Acid Last Dose Date Unk Valproic Acid Last Dose Time Unk Laboratory Tests 07/24/19 19:50 Laboratory Tests 07/24/19 19:50 EKG EKG [] Radiology/Procedures Radiology/Procedures [] Course & Med Decision Making Course & Med Decision Making Pertinent Labs and Imaging studies reviewed. (See chart for details) []64-year-old female presents to the emergency Department complaints of seizure. Patient has underlying history of seizure disorder, hypertension. Family witnessed 3 minute tonic-clonic seizure, postictal state. Recent medications for upper respiratory tract infection according to family. She follows with neurology [facility]. Patient denies any chest pain, shortness of breath, nausea, vomiting, headache or visual change. She is slow to respond but appears to be alert and oriented Valproic acid level 48 (subtherapeutic) 500mg po valproic acid x 1 Recommend dc home, follow up with outpatient neurology [place] Disclaimer Dragon Disclaimer This electronic medical record was generated, in whole or in part, using a voice recognition dictation system. Departure Departure Impression: Primary Impression: Seizure Disposition: 01 HOME, SELF-CARE Condition: IMPROVED Referrals: [facility] MD (PCP) Patient Instructions: Seizure, Adult Additional Instructions: Recommend follow up with PCP 3 - 5 days Return to the ER with worsening symptoms, intractable pain, fever, altered mental status Tylenol/Motrin as needed for pain Follow up with primary neurologist at [facility] MD Jul 24, 2019 19:20
[2019-07-24 20:00] LABS: BASO # 0.1 x10^3/uL (0.0-0.2); BASO % 2 % (0-3); EOS # 0.1 x10^3/uL (0.0-0.7); EOS % 2 % (0-3); HEMATOCRIT 39.3 % (36.0-47.0); HEMOGLOBIN 12.5 g/dL (12.0-15.5); LYMPH # 2.6 x10^3/uL (1.0-4.8); LYMPH % 35 % (24-48); MEAN CORPUSCULAR HEMOGLOBIN 26 pg (25-35); MEAN CORPUSCULAR HGB CONC 32 g/dL (31-37); MEAN CORPUSCULAR VOLUME 83 fL (79-100); MONO # 0.5 x10^3/uL (0.0-1.1); MONO % 7 % (0-9); NEUT # 4.2 x10^3/uL (1.8-7.7); NEUT % 55 % (31-73); PLATELET COUNT 293 x10^3/uL (140-400); RED BLOOD COUNT 4.75 x10^6/uL (3.50-5.40); RED CELL DISTRIBUTION WIDTH 16.2 % (11.5-14.5); WHITE BLOOD COUNT 7.5 x10^3/uL (4.0-11.0)
[2019-07-24 20:19] LABS: ANION GAP 9 (6-14); BLOOD UREA NITROGEN 21 mg/dL (7-20); BUN/CREATININE RATIO 26 (6-20); CARBON DIOXIDE 27 mmol/L (21-32); CHLORIDE 106 mmol/L (98-107); CREATININE 0.8 mg/dL (0.6-1.0); GFR 87.1; GLUCOSE 83 mg/dL (70-99); POTASSIUM 3.8 mmol/L (3.5-5.1); SODIUM 142 mmol/L (136-145)
[2019-07-24 20:25] LABS: ALBUMIN 3.7 g/dL (3.4-5.0); ALBUMIN/GLOBULIN RATIO 0.9 (1.0-1.7); ALK PHOS 59 U/L (46-116); ALT (SGPT) 16 U/L (14-59); AST (SGOT) 15 U/L (15-37); TOTAL BILIRUBIN 0.2 mg/dL (0.2-1.0); TOTAL PROTEIN 7.6 g/dL (6.4-8.2)
[2019-07-24 20:26] LABS: VAL ACID 48 mcg/mL (50-100)
[2019-07-24] MEDS ORDERED: VALPROIC ACID 250 MG CAPSULE. PO SCH (20:45)
[2019-07-24 21:01] VITALS: BP 149/71
[2019-07-24] MEDS ORDERED: VALPROIC ACID 250 MG CAPSULE. PO ONE (21:15)
== END 2019-07-24 21:10 | disposition home or self-care (01) ==
LOC: ER 18:56
DX: G40.909 Epilepsy, unspecified, not intractable, without status epilepticus (principal); K21.9 Gastro-esophageal reflux disease without esophagitis; J45.909 Unspecified asthma, uncomplicated; I10 Essential (primary) hypertension; G89.29 Other chronic pain; Z88.2 Allergy status to sulfonamides
CPT/HCPCS: 36415; 80053; 80164; 83605; 85025; 99284

== ENCOUNTER 2020-02-13 12:31 | Emergency (ER) | payer OTHER ==
[~2020-02-13] VITALS: Ht 160 cm; Wt 68.1 kg
--- NOTE | 2020-02-13 13:29 | RAD ---
Examination: HIP RIGHT 2V WITH PELVIS History: Reason: fell, right hip and pelvic pain / Spl. Instructions: / History: Comparison/Correlation: None Findings: Two-view right hip x-ray exam was performed. Right hip joint space is normal. No acute fracture or bone destruction. Soft tissues are unremarkable. No significant degenerative change. Impression: No acute processes. Consider further imaging if occult process is a persistent concern. Electronically signed by: Zafar House MD (02/13/2020 1:26 PM) [email or web address]
--- NOTE | 2020-02-13 13:30 | RAD ---
AP, oblique, and lateral views of the right knee were obtained. Indication: Pain after fall Comparison: none. Findings: No fracture, or dislocation. No joint effusion. Mild degenerative changes. Electronically signed by: Jose Warren MD (02/13/2020 1:27 PM) [id number]
--- NOTE | 2020-02-13 13:53 | RAD ---
Examination: LUMBAR SPINE 2-3V, THORACIC SPINE 3V History: Reason: fell, back pain / Spl. Instructions: / History: Comparison/Correlation: 07/11/2019 Portable Chest X-ray Exam Findings: Total of 3 images of the thoracic spine were obtained. 3 images of the lumbar spine were also provided. Punctate densities are noted overlying the right upper thoracic level similar to the previous chest x-ray exam. These appear to be mostly within soft tissues of the back on the lateral view of the thoracic spine. Alignment of the thoracic and lumbar spine is normal. Vertebral heights and disc spaces are adequate. No fracture or bone destruction. Degenerative changes involving the lower lumbar spine facet joints from L4 to S1 noted bilaterally. Mild degenerative spurring of lumbar spine vertebral bodies. Right upper quadrant surgical clips are present. Surgical clips involves left pelvic region. Impression: No suspicious process. No significant degenerative change for the patient's age. Electronically signed by: Zafar House MD (02/13/2020 1:51 PM) [email or web address]
--- NOTE | 2020-02-13 14:20 | PHYS DOC ---
Past Medical History Past Medical History: Arthritis, Asthma, GERD, Hypertension, Seizure, Other Additional Past Medical Histor: VERTIGO, CHRONIC BACK PAIN Past Surgical History: Cholecystectomy, Hysterectomy, Other Additional Past Surgical Histo: CYSTECTOMY, NASAL Smoking Status: Light Tobacco Smoker Alcohol Use: None Drug Use: None General Adult EDM: Chief Complaint: MECHANICAL FALL HPI: HPI: Patient is a 64 year old female who was brought here by EMS from home after she fell at home. Patient complained of right knee pain, right hip pain, upper low back pain. Patient denies any head or neck injury. Patient denies any bowel bladder incontinence. Review of Systems: Review of Systems: Constitutional: Denies fever or chills. [] Eyes: Denies change in visual acuity. [] HENT: Denies nasal congestion or sore throat. [] Respiratory: Denies cough or shortness of breath. [] Cardiovascular: Denies chest pain or edema. [] GI: Denies abdominal pain, nausea, vomiting, bloody stools or diarrhea. [] : Denies dysuria. [] Musculoskeletal: Positive for back pain, right knee pain, right hip pain. Integument: Denies rash. [] Neurologic: Denies headache, focal weakness or sensory changes. [] Endocrine: Denies polyuria or polydipsia. [] Lymphatic: Denies swollen glands. [] Psychiatric: Denies depression or anxiety. [] Heart Score: Risk Factors: Risk Factors: DM, Current or recent (<one month) smoker, HTN, HLP, family history of CAD, obesity. Risk Scores: Score 0 - 3: 2.5% MACE over next 6 weeks - Discharge Home Score 4 - 6: 20.3% MACE over next 6 weeks - Admit for Clinical Observation Score 7 - 10: 72.7% MACE over next 6 weeks - Early Invasive Strategies Allergies: Allergies: Allergies Coded Allergies Type Severity Reaction Last Updated Verified Sulfa (Sulfonamide Antibiotics) Allergy Intermediate 08/19/17 Yes Physical Exam: PE: Constitutional: Well developed, well nourished, no acute distress, non-toxic appearance. [] HENT: Normocephalic, atraumatic, bilateral external ears normal, oropharynx moist, no oral exudates, nose normal. [] Eyes: PERRLA, EOMI, conjunctiva normal, no discharge. [] Neck: Normal range of motion, no tenderness, supple, no stridor. [] Cardiovascular:Heart rate regular rhythm, no murmur [] Lungs & Thorax: Bilateral breath sounds clear to auscultation [] Abdomen: Bowel sounds normal, soft, no tenderness, no masses, no pulsatile masses. [] Skin: Warm, dry, no erythema, no rash. [] Back: No tenderness, no CVA tenderness. [] Extremities: No tenderness, no cyanosis, no clubbing, ROM intact, no edema. [] Neurologic: Alert and oriented X 3, normal motor function, normal sensory function, no focal deficits noted. [] Psychologic: Affect normal, judgement normal, mood normal. [] Current Patient Data: Vital Signs: Vital Signs Date Time Temp Pulse Resp B/P (MAP) Pulse Ox O2 Delivery O2 Flow Rate FiO2 02/13/20 12:44 99.5 89 16 190/109 (136) 98 Room Air 99.5 EKG: EKG: [] Radiology/Procedures: Radiology/Procedures: [][place] [address] IMAGING REPORT Signed PATIENT: LANDON MOYER ACCOUNT: [id number] : 1955 LOCATION: ER AGE: 64 SEX: F EXAM STATUS: REG ER ORD. PHYSICIAN: ROSIO MAYS DO REASON: fell, right knee pain PROCEDURE: KNEE RIGHT 3V AP, oblique, and lateral views of the right knee were obtained. Indication: Pain after fall Comparison: none. Findings: No fracture, or dislocation. No joint effusion. Mild degenerative changes. Electronically signed by: Jose Warren MD (02/13/2020 1:27 PM) [id number] DICTATED and SIGNED BY: JOSE WARREN MD DATE: 02/13/[address] [id number] IMAGING REPORT Signed PATIENT: LANDON MOYER ACCOUNT: [id number] : 1955 LOCATION: ER AGE: 64 SEX: F EXAM STATUS: REG ER ORD. PHYSICIAN: ROSIO MAYS DO REASON: fell, back pain PROCEDURE: LUMBAR SPINE 2-3V Examination: LUMBAR SPINE 2-3V, THORACIC SPINE 3V History: Reason: fell, back pain / Spl. Instructions: / History: Comparison/Correlation: 07/11/2019 Portable Chest X-ray Exam Findings: Total of 3 images of the thoracic spine were obtained. 3 images of the lumbar spine were also provided. Punctate densities are noted overlying the right upper thoracic level similar to the previous chest x-ray exam. These appear to be mostly within soft tissues of the back on the lateral view of the thoracic spine. Alignment of the thoracic and lumbar spine is normal. Vertebral heights and disc spaces are adequate. No fracture or bone destruction. Degenerative changes involving the lower lumbar spine facet joints from L4 to S1 noted bilaterally. Mild degenerative spurring of lumbar spine vertebral bodies. Right upper quadrant surgical clips are present. Surgical clips involves left pelvic region. Impression: No suspicious process. No significant degenerative change for the patient's age. Electronically signed by: Zafar Bojorquez MD (02/13/2020 1:51 PM) [id number] DICTATED and SIGNED BY: ZAFAR BOJORQUEZ MD DATE: 02/13/20 1351 [facility] [address] [place] [address] IMAGING REPORT Signed PATIENT: LANDON MOYER ACCOUNT: [id number] : 1955 LOCATION: ER AGE: 64 SEX: F EXAM STATUS: REG ER ORD. PHYSICIAN: ROSIO MAYS DO REASON: fell, right hip and pelvic pain PROCEDURE: HIP RIGHT 2V WITH PELVIS Examination: HIP RIGHT 2V WITH PELVIS History: Reason: fell, right hip and pelvic pain / Spl. Instructions: / History: Comparison/Correlation: None Findings: Two-view right hip x-ray exam was performed. Right hip joint space is normal. No acute fracture or bone destruction. Soft tissues are unremarkable. No significant degenerative change. Impression: No acute processes. Consider further imaging if occult process is a persistent concern. Electronically signed by: Zafar Bojorquez MD (02/13/2020 1:26 PM) [id number] DICTATED and SIGNED BY: ZAFAR BOJORQUEZ MD DATE: 02/13/20 5038 Course & Med Decision Making: Course & Med Decision Making Pertinent Labs and Imaging studies reviewed. (See chart for details) Patient is a 64-year-old female who was evaluated in ER due to a fall, having upper and lower back pain, right knee pain, right hip pain. X-ray did not show any acute problem, she was able to get up and walk without a problem. Dragon Disclaimer: Dragon Disclaimer: This electronic medical record was generated, in whole or in part, using a voice recognition dictation system. Departure Departure Impression: Primary Impression: Back pain Additional Impressions: Hip pain Knee pain, right Disposition: 01 HOME, SELF-CARE Condition: STABLE Referrals: [facility]NS[facility] MD (PCP) PLEASE FOLLOW UP WITH YOUR FAMILY DOCTOR NEXT WEEK . Patient Instructions: Back Pain, Adult, Hip Pain, Knee Pain Justicifation of Admission Dx: Justifications for Admission: Justification of Admission Dx: N/A ROSIO MAYS DO Feb 13, 2020 14:20
[2020-02-13 14:45] VITALS: BP 178/72
== END 2020-02-13 14:56 | disposition home or self-care (01) ==
LOC: ER 12:31
DX: M54.5 Low back pain (principal); M25.551 Pain in right hip; M25.561 Pain in right knee; M19.90 Unspecified osteoarthritis, unspecified site; J45.909 Unspecified asthma, uncomplicated; K21.9 Gastro-esophageal reflux disease without esophagitis; I10 Essential (primary) hypertension; G89.29 Other chronic pain; Z90.710 Acquired absence of both cervix and uterus; Z90.49 Acquired absence of other specified parts of digestive tract; Z98.890 Other specified postprocedural states; Z87.891 Personal history of nicotine dependence; Z90.89 Acquired absence of other organs; Z88.2 Allergy status to sulfonamides
CPT/HCPCS: 72072; 72100; 73502; 73562; 99284

== ENCOUNTER 2020-09-20 15:44 | Emergency (ER) | payer OTHER ==
[~2020-09-20] VITALS: Ht 160 cm; Wt 76.8 kg
--- NOTE | 2020-09-20 17:47 | EKG ---
[facility] [address] [place] [address] Test Date: 2020-09-20 Test Time: 16:57:01 Pat Name: LANDON MOYER Department: Room: Gender: F Radio Presenter: : 1955 Requested By: PATT CHENG Order Number: [id number] Reading MD: Measurements Intervals [place] Rate: 64 P: 43 [place]: 188 QRS: 13 QRSD: 74 T: 39 QT: 384 QTc: 400 Interpretive Statements SINUS RHYTHM LEFT ATRIAL ABNORMALITY QRS(T) CONTOUR ABNORMALITY CONSISTENT WITH SEPTAL INFARCT AGE UNDETERMINED ABNORMAL ECG RI6.01 No previous ECG available for comparison
[2020-09-20 17:54] LABS: BASO # 0.2 x10^3/uL (0.0-0.2); BASO % 3 % (0-3); EOS # 0.1 x10^3/uL (0.0-0.7); EOS % 2 % (0-3); HEMATOCRIT 37.4 % (36.0-47.0); HEMOGLOBIN 12.3 g/dL (12.0-15.5); LYMPH # 4.4 x10^3/uL (1.0-4.8); LYMPH % 59 % (24-48); MEAN CORPUSCULAR HEMOGLOBIN 27 pg (25-35); MEAN CORPUSCULAR HGB CONC 33 g/dL (31-37); MEAN CORPUSCULAR VOLUME 81 fL (79-100); MONO # 0.6 x10^3/uL (0.0-1.1); MONO % 8 % (0-9); NEUT # 2.2 x10^3/uL (1.8-7.7); NEUT % 29 % (31-73); PLATELET COUNT 267 x10^3/uL (140-400); RED CELL DISTRIBUTION WIDTH 15.7 % (11.5-14.5); WHITE BLOOD COUNT 7.5 x10^3/uL (4.0-11.0)
[2020-09-20 18:01] LABS: CALCIUM 8.7 mg/dL (8.5-10.1); CREATININE 0.8 mg/dL (0.6-1.0); GFR 86.8; POTASSIUM 4.4 mmol/L (3.5-5.1)
--- NOTE | 2020-09-20 18:05 | RAD ---
Chest AP portable 09/20/2020. Reason for exam: Weakness and sweating as. Comparison is made with an exam of 07/11/2019. No infiltrate or effusion is seen. Heart size and pulmonary vascularity appear normal. IMPRESSION: No acute abnormality. Electronically signed by: Vu Muller Jr., MD (09/20/2020 6:03 PM) [id number]
[2020-09-20 18:07] LABS: ALBUMIN 3.3 g/dL (3.4-5.0); MAGNESIUM 2.2 mg/dL (1.8-2.4); TOTAL BILIRUBIN 0.2 mg/dL (0.2-1.0); TOTAL PROTEIN 6.7 g/dL (6.4-8.2)
[2020-09-20 18:22] LABS: % ATYL 3 % (0-0); % LYMPHS 47 % (24-48); % MONOS 10 % (0-10); % SEGS 40 % (35-66); PLT ESTIMATE ADEQUATE (ADEQUATE)
[2020-09-20] MEDS ORDERED: IV NORMAL SALINE 1000ML BAG 1,000 ML IV ONE (18:30)
--- NOTE | 2020-09-20 18:36 | PHYS DOC ---
Past Medical History Past Medical History: Arthritis, Asthma, GERD, Hypertension, Seizure, Other Additional Past Medical Histor: VERTIGO, CHRONIC BACK PAIN Past Surgical History: Cholecystectomy, Hysterectomy, Other Additional Past Surgical Histo: CYSTECTOMY, NASAL Smoking Status: Current Every Day Smoker Alcohol Use: None Drug Use: None General Adult EDM: Chief Complaint: WEAKNESS/GENERALIZED HPI: HPI: Patient is a 65 year old female with past medical history of hypertension, seizures, asthma presents today for weakness. She states that 3 weeks ago she started to have increased weakness, falls, and lightheadedness. She presented to her PCP who stated she was dehydrated. She increased her hydration but states that her symptoms of weakness and lightheadedness have just increased since that time. She denies the room spinning but states that she feels that she is going to pass out multiple times a day. She states that 1 week ago she also noticed some sharp chest pains over her anterior left chest. She denies any radiation of these chest pain, states they do not get better or worse with exertion. She has never experienced this chest pain before. She denies any symptoms of nausea, vomiting, and lightheadedness that correlates with this chest pain. She also states that she noticed headache that began 1 week ago and intense pressure over the front of her head. Around this time she also noticed numbness in her fingertips and thigh on the right side of her body. She denies any numbness on the left side of her body. She has had increased wheezing over the past week, which she uses her inhaler for. She states that her inhaler has not been working as well as it usually does. Review of Systems: Review of Systems: Constitutional: Denies fever or chills. [] Eyes: Denies change in visual acuity. [] HENT: Denies nasal congestion or sore throat. [] Respiratory: Denies cough or shortness of breath. [] Cardiovascular: Positive chest pain Denies edema. [] GI: Denies abdominal pain, nausea, vomiting, bloody stools or diarrhea. [] : Denies dysuria. [] Musculoskeletal: Denies back pain or joint pain. [] Integument: Denies rash. [] Neurologic: Positive headache, generalized weakness, and sensory changes on right side of body Denies focal weakness. [] Endocrine: Denies polyuria or polydipsia. [] Lymphatic: Denies swollen glands. [] Psychiatric: Denies depression or anxiety. [] Heart Score: Risk Factors: Risk Factors: DM, Current or recent (<one month) smoker, HTN, HLP, family history of CAD, obesity. Risk Scores: Score 0 - 3: 2.5% MACE over next 6 weeks - Discharge Home Score 4 - 6: 20.3% MACE over next 6 weeks - Admit for Clinical Observation Score 7 - 10: 72.7% MACE over next 6 weeks - Early Invasive Strategies Allergies: Allergies: Allergies Coded Allergies Type Severity Reaction Last Updated Verified Sulfa (Sulfonamide Antibiotics) Allergy Intermediate 08/19/17 Yes Physical Exam: PE: Constitutional: Well developed, well nourished, no acute distress, non-toxic appearance. [] HENT: Normocephalic, atraumatic, bilateral external ears normal, oropharynx moist, no oral exudates, nose normal. [] Eyes: PERRLA, EOMI, conjunctiva normal, no discharge. [] Neck: Normal range of motion, no tenderness, supple, no stridor. [] Cardiovascular:Heart rate regular rhythm, no murmur [] Lungs & Thorax: Bilateral breath sounds clear to auscultation [] Abdomen: Bowel sounds normal, soft, no tenderness, no masses, no pulsatile masses. [] Skin: Warm, dry, no erythema, no rash. [] Back: No tenderness, no CVA tenderness. [] Extremities: No tenderness, no cyanosis, no clubbing, ROM intact, no edema. [] Neurologic: Alert and oriented X 3, normal motor function, normal sensory function, no focal deficits noted. [] Psychologic: Affect normal, judgement normal, mood normal. [] Current Patient Data: Labs: Laboratory Tests Test 09/20/20 17:45 White Blood Count 7.5 x10^3/uL (4.0-11.0) Red Blood Count 4.60 x10^6/uL (3.50-5.40) Hemoglobin 12.3 g/dL (12.0-15.5) Hematocrit 37.4 % (36.0-47.0) Mean Corpuscular Volume 81 fL (79-100) Mean Corpuscular Hemoglobin 27 pg (25-35) Mean Corpuscular Hemoglobin Concent 33 g/dL (31-37) Red Cell Distribution Width 15.7 % (11.5-14.5) H Platelet Count 267 x10^3/uL (140-400) Neutrophils (%) (Auto) 29 % (31-73) L Lymphocytes (%) (Auto) 59 % (24-48) H Monocytes (%) (Auto) 8 % (0-9) Eosinophils (%) (Auto) 2 % (0-3) Basophils (%) (Auto) 3 % (0-3) Neutrophils # (Auto) 2.2 x10^3/uL (1.8-7.7) Lymphocytes # (Auto) 4.4 x10^3/uL (1.0-4.8) Monocytes # (Auto) 0.6 x10^3/uL (0.0-1.1) Eosinophils # (Auto) 0.1 x10^3/uL (0.0-0.7) Basophils # (Auto) 0.2 x10^3/uL (0.0-0.2) Segmented Neutrophils % 40 % (35-66) Lymphocytes % 47 % (24-48) Atypical Lymphocytes % (Manual) 3 % (0-0) H Monocytes % 10 % (0-10) Platelet Estimate Adequate (ADEQUATE) Sodium Level 140 mmol/L (136-145) Potassium Level 4.4 mmol/L (3.5-5.1) Chloride Level 106 mmol/L (98-107) Carbon Dioxide Level 27 mmol/L (21-32) Anion Gap 7 (6-14) Blood Urea Nitrogen 21 mg/dL (7-20) H Creatinine 0.8 mg/dL (0.6-1.0) Estimated GFR (Cockcroft-Gault) 86.8 BUN/Creatinine Ratio 26 (6-20) H Glucose Level 92 mg/dL (70-99) Calcium Level 8.7 mg/dL (8.5-10.1) Magnesium Level 2.2 mg/dL (1.8-2.4) Total Bilirubin 0.2 mg/dL (0.2-1.0) Aspartate Amino Transferase (AST) 13 U/L (15-37) L Alanine Aminotransferase (ALT) 20 U/L (14-59) Alkaline Phosphatase 71 U/L (46-116) Troponin I Quantitative < 0.017 ng/mL (0.000-0.055) XO-Dxh-L-Type Natriuretic Peptide 22 pg/mL (0-124) Total Protein 6.7 g/dL (6.4-8.2) Albumin 3.3 g/dL (3.4-5.0) L Albumin/Globulin Ratio 1.0 (1.0-1.7) Lipase 75 U/L (73-393) Laboratory Tests 09/20/20 17:45 Laboratory Tests 09/20/20 17:45 Vital Signs: Vital Signs Date Time Temp Pulse Resp B/P (MAP) Pulse Ox O2 Delivery O2 Flow Rate FiO2 09/20/20 17:28 66 16 151/68 (95) 96 Room Air 09/20/20 16:45 98.3 98.3 EKG: EKG: []ekg performed at 1657 rate [address] elevation no st depression no acute LA. Radiology/Procedures: Radiology/Procedures: [] Impression: IMPRESSION: Mild small vessel ischemic change, technically age indeterminate without recent prior imaging. Exposure: One or more of the following in the visualized dose reduction techniques were utilized for this examination: 1. Automated exposure control 2. Adjustment of the MA and/or KV according to patient size Use of iterative of reconstructive technique Electronically signed by: Capri Beavers MD (09/20/2020 7:12 PM) [facility] Course & Med Decision Making: Course & Med Decision Making Pertinent Labs and Imaging studies reviewed. (See chart for details) [] Patient was evaluated for chief complaint. Work-up consisted of laboratory analysis and radiologic imaging and EKG. Results reviewed and discussed with patient. CT head chest x-ray within no acute process. Troponin x2 negative. D-dimer within normal limits. Treatment included IV fluids. Patient be discharged home with instruction to follow-up with primary care physician.carly Castano Disclaimer: [place] Disclaimer: This electronic medical record was generated, in whole or in part, using a voice recognition dictation system. Departure Departure Impression: Primary Impression: Weakness Additional Impressions: Dehydration Headache Chest wall pain Disposition: 01 DC HOME SELF CARE/HOMELESS Condition: STABLE Referrals: [facility]NS[facility] MD (PCP) Patient Instructions: Dehydration, Adult, Headache, FAQs, Weakness JORGE VIZCAINO DO Sep 20, 2020 18:36
--- NOTE | 2020-09-20 19:15 | RAD ---
Exam: CT head INDICATION: Dizzy, headache TECHNIQUE: Sequential axial images through the head were obtained without the administration of IV co ntrast. Comparisons: 07/29/2017 FINDINGS: No focal parenchymal lesion or hemorrhage is identified. There is no midline shift or sulcal effaceme nt. Mild patchy hypodensity in the periventricular white matter. No acute vascular territory infarction i s identified. Fitch-white distinction is preserved. The ventricular system is within normal limits without compression hydrocephalus. The basal cisterns are well maintained. The visualized portions of the paranasal sinuses and mastoid air cells are well-pneumatized. No acute fractures. IMPRESSION: Mild small vessel ischemic change, technically age indeterminate without recent prior imaging. Exposure: One or more of the following in the visualized dose reduction techniques were utilized for this examination: 1. Automated exposure control 2. Adjustment of the MA and/or KV according to patient size Use of iterative of reconstructive technique Electronically signed by: Capri Beavers MD (09/20/2020 7:12 PM) [facility]
[2020-09-20 20:19] LABS: BILIRUBIN,URINE NEGATIVE (NEG); CLARITY,URINE CLEAR; COLOR,URINE YELLOW; NITRITE,URINE NEGATIVE (NEG); PROTEIN,URINE NEGATIVE (NEG-TRACE)
[2020-09-20 20:26] LABS: BACTERIA,URINE FEW /HPF (0-FEW); RBC,URINE 0 /HPF (0-2); WBC,URINE OCC /HPF (0-4)
[2020-09-20 20:27] LABS: BARBITURATES NEG (NEG); BENZODIAZEPINES NEG (NEG); CANNABINOIDS POS (NEG); COCAINE NEG (NEG); METHADONE NEG (NEG); OPIATES NEG (NEG); PHENCYCLIDINE NEG (NEG)
[2020-09-20 20:29] LABS: AMPHETAMINE/METHAMPHETAMINE NEG (NEG)
[2020-09-20 23:00] VITALS: BP 146/73
== END 2020-09-20 23:05 | disposition home or self-care (01) ==
LOC: ER 15:44
DX: R53.1 Weakness (principal); E86.0 Dehydration; R51.9 Headache, unspecified; R07.89 Other chest pain; J45.909 Unspecified asthma, uncomplicated; K21.9 Gastro-esophageal reflux disease without esophagitis; I10 Essential (primary) hypertension; G89.29 Other chronic pain; F17.200 Nicotine dependence, unspecified, uncomplicated; Z90.49 Acquired absence of other specified parts of digestive tract; Z90.710 Acquired absence of both cervix and uterus
CPT/HCPCS: 36415; 70450; 71045; 80053; 80307; 81001; 83690; 83735; 83880; 84484; 85007; 85025; 85379; 93005; 96360; 99285; J7030